=== PATIENT | male | born 1950 | race Caucasian/White ===

== ENCOUNTER 2017-01-27 08:00 | Outpatient (CLI) | payer MEDICARE, OTHER ==
[2012-09-13 10:46] VITALS: BMI 38.0
[2017-01-27] MEDS ORDERED: FLOMAX0.4 MG PO (11:08)
[2017-01-27] MEDS ORDERED: CALAN SR240 MG PO (11:08)
[2017-01-27] MEDS ORDERED: HYZAAR 100-12.51 TAB PO (11:09)
[2017-01-27] MEDS ORDERED: ROBAXIN-750750 MG PO (11:09)
[2017-01-27] MEDS ORDERED: FUROSEMIDE20 MG PO (11:10)
[2017-01-27] MEDS ORDERED: PRAVASTATIN SOD10 MG PO (11:10)
[2017-01-27] MEDS ORDERED: MULTI-DAY VITAM1 TAB PO (11:11)
[2017-01-27] MEDS ORDERED: HYDRALAZINE HCL25 MG PO (11:11)
[2017-01-27] MEDS ORDERED: ARTHROTEC EC 71 EACH PO (11:11)
[2017-01-27 11:59] LABS: HEMATOCRIT 53.6 % (42.0-54.0); HEMOGLOBIN 17.9 g/dL (13.5-17.5); MCH 31.4 pg (26.0-34.0); MCHC 33.4 g/dL (31.0-37.0); RBC 5.7 10x6/uL (4.20-6.10); RDW 13.7 % (11.5-14.5); WBC 9.1 10x3/uL (4.8-10.8)
[2017-01-27 12:08] LABS: ANION GAP 11.1 mmol/L (8-16); CALCIUM 8.7 mg/dL (8.5-10.1); CARBON DIOXIDE 30.7 mmol/L (21.0-32.0); CREATININE - SERUM 1.2 mg/dL (0.6-1.3); POTASSIUM - SERUM 3.8 mmol/L (3.5-5.1)
--- NOTE | 2017-01-27 14:51 | NUR ---
[facility] APPT: EKG REVIEWED BY DR. MEHTA, FAXED TO CARDIOLOGY FOR REVIEW. PER ROSETTA AT CARDIOLOGY, PATIENT NEEDS TO BE SEEN FOR CARDIAC CLEARANCE PRIOR TO SURGERY. LUISITO AT DR. LU'S OFFICE NOTIFIED, STATES SHE WILL NOTIFY PATIENT AND RESCHEDULE PATIENT.
== END 2017-01-27 23:59 | disposition home or self-care (01) ==
LOC: D.PAN 08:00 → EDSTATUS 01-28 07:00 → D.OPS 01-28 07:00 → D.PAN 01-28 07:00 → D.OPS 01-28 08:15
PROVIDERS: Anesthesiology
DX: M75.120 Complete rotator cuff tear or rupture of unspecified shoulder, not specified as traumatic (principal); Z01.810 Encounter for preprocedural cardiovascular examination; Z01.811 Encounter for preprocedural respiratory examination; Z01.812 Encounter for preprocedural laboratory examination; Z53.9 Procedure and treatment not carried out, unspecified reason

== ENCOUNTER 2017-11-30 10:52 | Outpatient (CLI) | payer MEDICARE, OTHER ==
[~2017-11-30] VITALS: Ht 177.8 cm; Wt 122.7 kg
--- NOTE | ~2017-11-30 | HEMODYNAMI ---
PATIENT:VERA PARKS MEDICAL RECORD: [id number] : 46 LOCATION:[facility]CAT ADMISSION DATE: 11/30/17 Generatedon:11/30/201714:09 Patient name: VERA PARKS Patient #: [id number] SSN: : 1950 Date of study: 11/30/2017 Page: Of Hemodynamic Procedure Report Patient Data Patient Demographics Procedure consent was obtained First Name: VERA Gender: Male Last Name: KASEY : 1950 Middle Initial: C Age: 67 year(s) Patient #: [id number] Race: Unknown Additional ID: [id number] Contact details Address: [address] [place] [address] State: [place] City: [place] Zip code: [address] Admission Admission Data Admission Date: 11/30/2017 Admission Time: 10:52 Procedure Procedure Types Cath Procedure Diagnostic Procedure Cardioversion Miscellaneous Procedures Moderate Sedation up to 15 minutes Procedure Description Procedure Date Procedure Date: 11/30/2017 Procedure Start Time: 13:54 Procedure End Time: 14:00 Procedure Staff Name Function Issac Hilario MD Performing Physician Zoë Garcia RT Monitor Veronique Ann RT Scrub Pradeep Palm RN Nurse Silver Sexton [facility] Additional personnel Procedure Data Cath Procedure Fluoroscopy Diagnostic fluoroscopy Total fluoroscopy Time: 0 time: 0 min min Diagnostic fluoroscopy Total fluoroscopy dose: 0 dose: 0 mGy mGy Contrast Material Contrast Material Type Amount (ml) Isovue 300 0 Estimated blood loss: 0 ml Procedure Complications No complications Procedure Medications Medication Administration Route Dosage 0.9% NaCl I.V. 100 ml/hr Oxygen NC 2 l/min Refer to Anesthesia Notes for Sedation Medications Hemodynamics Rest Heart Rate: 0 (bpm) Snapshots Pre Cath Intra NCS Post Cath Vital Signs Time Heart Resp SPO2 etCO2 NIBP (mmHg) Rhythm Pain Sedation Rate (ipm) (%) (mmHg) Status Level (bpm) 13:39:04 44 16 93 0 161/80(129) A-Fib 0 (11) 10(A) , No pain 13:43:53 40 34 96 43.1 170/81(123) A-Fib 0 (11) 10(A) , No pain 13:48:36 49 12 96 37.8 148/83(126) A-Fib 0 (11) 10(A) , No pain 13:53:20 47 17 93 31.7 147/84(106) A-Fib 0 (11) 10(A) , No pain 13:57:59 44 14 79 0 106/80(97) SB 0 (11) 9(A) , No pain 14:08:22 37 10 97 0 108/62(82) A-Fib 0 (11) 9(A) , No pain Medications Time Medication Route Dose Verified Delivered Reason Notes Effectiven ess by by 13:41:22 0.9% NaCl I.V. 100 Pradeep Pradeep Per ml/hr Arpita Palm physician RN RN 13:41:32 Oxygen NC 2 Pradeep Pradeep Per l/min Arpita Palm physician RN RN 13:54:49 Refer to Pradeep Fernández for Anesthesia Arpita Palm sedation Notes for RN RN Sedation Medications Procedure Log Time Note 13:26:51 Informed consent obtained and on chart 13:27:22 Veronique Ann RT(R) sent for patient. Start room use. 13:27:23 Time tracking: Regular hours 13:27:29 Plan of Care:Hemodynamics will remain stable., Cardiac rhythm will remain stable., Comfort level will be maintained., Respiratory function will remain adequate., Patient/ family verbilizes understanding of procedure., Procedure tolerated without complication., Recovers from procedure without complications.. 13:31:51 Patient received from Pre/Post Procedure Room to CCL 1 Alert and oriented. Tansferred to table in Supine position. 13:31:56 Warm blankets applied, and cyn hugger turned on for patient comfort. 13:31:57 Correct patient and procedure confirmed by team. 13:31:59 ECG and BP/O2 sat monitors applied to patient. 13:38:02 Baseline sample Acquired. 13:38:02 Vital chart was started 13:38:09 Rhythm: atrial fibrillation 13:38:12 Full Disclosure recording started 13:38:41 H&P Date Dictated: 11/23/2017 Within 30 days and on chart., H&P Addendum completed by physician on day of procedure. (MUST COMPLETE FOR ALL OUTPATIENTS). 13:38:43 Pre-procedure instructions explained to patient. 13:38:44 Pre-op teaching completed and patient verbalized understanding. 13:38:45 Family in waiting room. 13:38:46 Patient NPO since Midnight. 13:38:50 Is the patient allergic to Iodine/contrast media? No. 13:38:51 Was the patient premedicated? No 13:38:52 Is patient on blood thinner?Yes 13:38:56 ACC The patient was administered the following blood thiners within the last 24 hours: Xarelto 13:38:58 Patient diabetic? No. 13:39:01 Previous problem with sedation/anesthesia? No ? 13:39:03 Snore? Yes 13:39:05 Sleep apnea? No 13:39:06 Deviated septum? No 13:39:06 Opens mouth fully? Yes 13:39:07 Sticks out tongue? Yes 13:39:10 Airway obstruction? No ? 13:39:15 Dentures? Yes out 13:39:19 Pre procedure: right dorsailis pedis pulse 1+ Palpable, but thready & weak; easily obliterated 13:39:21 Pre procedure: left dorsailis pedis pulse 1+ Palpable, but thready & weak; easily obliterated 13:39:23 Patient pain scale 0/10 ?. 13:39:28 IV patent on arrival in left forearm with 0.9% NaCl at [facility]. 13:39:32 Lab results completed and on chart. 13:39:40 Alarms reviewed by R. N. 13:39:40 Sharps counted by scrub and verified by R.N. 13:40:16 Baseline sample Acquired. 13:41:22 0.9% NaCl 100 ml/hr I.V. was administered by Pradeep Palm RN; Per physician; 13:41:32 Oxygen 2 l/min NC was administered by Pradeep Palm RN; Per physician; 13:50:45 Silver Sexton Jr WHEEL PRESS CLERK present and monitoring patient for TIVA. 13:51:34 Physician arrived 13:51:35 --------ALL STOP TIME OUT------ 13:51:35 Final Timeout: patient, procedure, and site verified with staff and physician. All members of the team are in agreement. 13:51:39 Mid Chest site verified by team. 13:51:43 Physical assessment completed. ASA score P 2 - A patient with mild systemic disease as per Issac Hilario MD. 13:51:48 Sedation plan: TIVA Medication:Propofol 13:54:30 Procedure started. 13:54:49 Refer to Anesthesia Notes for Sedation Medications was administered by Pradeep Palm RN; for sedation; 13:55:08 Quick combo pads placed on patients chest and back. 13:56:39 Defibrillator synced and charged to 200 Joules. 13:56:41 Shock delivered. 13:59:16 Unsuccessful cardioversion. 13:59:41 Procedure ended.(Physican Out) 14:00:05 Fluoroscopy time 00.00 minutes. 14:00:07 Flurop Dose total: 0 14:00:07 Fluoroscopy dose: 0 mGy 14:00:11 Contrast amount:Isovue 300 0ml. 14:00:12 Sharps counted by scrub and verified by R.N. 14:00:19 Post procedure rhythm: unchanged. 14:00:22 Estimated blood loss: 0 ml 14:00:24 Post procedure instruction explained to patient.Patient verbalizes understanding. 14:00:24 Patient needs reinforcement of post procedure teaching. 14:00:41 Procedure type changed to Cath procedure, Diagnostic procedure, Cardioversion, Miscellaneous Procedures, Moderate Sedation up to 15 minutes 14:00:43 Procedure and supply charges have been captured, reviewed, submitted and are correct. 14:00:49 Procedure Complication : No complications 14:00:51 Vital chart was stopped 14:00:52 See physician's report for complete and final results. 14:00:54 Report given to Pre/Post Procedure Room. 14:00:56 Patient transfered to Pre/Post Procedure Room with Stretcher. 14:00:59 Procedure ended. 14:00:59 Full Disclosure recording stopped 14:01:01 End room use (Document Last) Signature Audit [place] Stage Time Signature Unsigned Intra-Procedure 11/30/2017 Veronique Ann 2:09:42 PM RT(R) Signatures Monitor : Zoë Garcia Signature : RT Date : Time : [facility] [address] [place] [address]
[~2017-11-30 10:52] MED LIST: ARTHROTEC EC 71 EACH PO; CALAN SR240 MG PO; FLOMAX0.4 MG PO; FUROSEMIDE20 MG PO; HYDRALAZINE HCL25 MG PO; HYZAAR 100-12.51 TAB PO; MULTI-DAY VITAM1 TAB PO; PRAVACHOL20 MG PO; ROBAXIN-750750 MG PO
[2017-11-30] MEDS ORDERED: XARELTO15 MG PO (11:26)
[2017-11-30] MEDS ORDERED: AXIRON30 MG/1.5 TP (11:26)
[2017-11-30] MEDS ORDERED: BETAPACE 80 MG80 MG PO (11:28)
[2017-11-30 11:39] VITALS: BP 124/56; Ht 177.8 cm; Wt 122.7 kg
[2017-11-30 11:57] LABS: ANION GAP 11.7 mmol/L (8-16); CALCIUM 8.1 mg/dL (8.5-10.1); CARBON DIOXIDE 28.5 mmol/L (21.0-32.0); CREATININE - SERUM 1.4 mg/dL (0.6-1.3); POTASSIUM - SERUM 4.2 mmol/L (3.5-5.1)
[2017-11-30 12:03] LABS: BASOPHILS 0.2 % (0-2); EOSINOPHILS 2.9 % (0-7); HEMATOCRIT 53.2 % (42.0-54.0); IMMATURE GRANULOCYTES 0.2 % (0-5); LYMPHOCYTES 17.5 % (15-50); MCH 30.8 pg (26.0-34.0); MCHC 33.8 g/dL (31.0-37.0); MCV 91.1 fL (80.0-100.0); MEAN PLATELET VOLUME 11.4 fL (7.4-10.4); MONOCYTES 7.9 % (2-11); NEUTROPHILS 71.3 % (40-80); PLATELET COUNT 214 10x3/uL (130-400); RBC 5.84 10x6/uL (4.20-6.10); RDW 13.8 % (11.5-14.5); WBC 8.7 10x3/uL (4.8-10.8)
[2017-11-30 12:21] LABS: INR 1.46 (0.85-1.17); PROTIME 17.2 SECONDS (11.6-15.0)
== END 2017-11-30 16:00 | disposition home or self-care (01) ==
LOC: D.CATH 10:52
PROVIDERS: Internal Medicine Cardiovascular Disease
DX: I48.91 Unspecified atrial fibrillation (principal); Z01.812 Encounter for preprocedural laboratory examination

== ENCOUNTER 2017-12-01 10:59 | Outpatient (CLI) | payer MEDICARE, OTHER ==
[~2017-12-01] VITALS: Ht 177.8 cm; Wt 122.7 kg
--- NOTE | ~2017-12-01 | HEMODYNAMI ---
PATIENT:VERA PARKS MEDICAL RECORD: [id number] : 46 LOCATION:DS[facility]CAT ADMISSION DATE: 12/01/17 Generatedon:12/01/201714:21 Patient name: VERA PARKS Patient #: [id number] SSN: : Date of study: 12/01/2017 Page: Of Hemodynamic Procedure Report Patient Data Patient Demographics Procedure consent was obtained First Name: VERA Gender: Male Last Name: KASEY : 1950 Middle Initial: C Age: 67 year(s) Patient #: [id number] Race: Unknown Additional ID: [id number] Contact details Address: [address] [place] [address] State: [place] City: [place] Zip code: [address] Admission Admission Data Admission Date: 12/01/2017 Admission Time: 10:59 Procedure Procedure Types Cath Procedure Diagnostic Procedure PPM/ICD PPM Dual Implant Procedure Description Procedure Date Procedure Date: 12/01/2017 Procedure Start Time: 13:49 Procedure End Time: 14:20 Procedure Staff Name Function Jose Juan Kenney MD Performing Physician Ruben Oliver MD Assisting physician Rodney Parks RT Monitor Monica Gandhi RT Scrub Freedom See RN Nurse Procedure Data Cath Procedure Fluoroscopy Diagnostic fluoroscopy Total fluoroscopy Time: 1.3 time: 1.3 min min Diagnostic fluoroscopy Total fluoroscopy dose: dose: 71.63 mGy 71.63 mGy Estimated blood loss: 10 ml Procedure Medications Medication Administration Route Dosage Ancef (1Gm/50ml NS) I.V.P.B 1 g Ancef Irrigation Topical 1 g (1gm/500ml NS) 0.9% NaCl I.V. 100 ml/hr Oxygen NC 2 l/min Fentanyl I.V. 50 mcg Versed I.V. 1 mg Fentanyl I.V. 50 mcg Versed I.V. 1 mg Hemodynamics Rest Heart Rate: 45 (bpm) Snapshots Pre Cath Intra NCS Post Cath Vital Signs Time Heart Resp SPO2 etCO2 NIBP (mmHg) Rhythm Pain Sedation Rate (ipm) (%) (mmHg) Status Level (bpm) 13:20:04 45 16 93 0 167/100(154) NSR 0 (11) 10(A) , No pain 13:30:56 44 17 89 0 180/96(145) NSR 0 (11) 10(A) , No pain 13:35:32 44 16 93 0 187/89(140) NSR 0 (11) 10(A) , No pain 13:40:11 44 17 92 0 168/93(128) NSR 0 (11) 10(A) , No pain 13:44:41 44 16 96 0 171/95(129) NSR 0 (11) 10(A) , No pain 13:50:40 62 16 94 0 173/90(147) NSR 0 (11) 10(A) , No pain 13:55:04 43 16 94 0 140/93(118) NSR 0 (11) 10(A) , No pain 13:59:24 42 18 95 0 150/88(130) NSR 0 (11) 10(A) , No pain 14:03:40 40 15 98 0 138/82(127) NSR 0 (11) 10(A) , No pain 14:07:58 60 16 99 0 146/99(117) NSR 0 (11) 10(A) , No pain 14:13:22 59 16 98 0 166/106(129) NSR 0 (11) 10(A) , No pain 14:17:50 89 14 99 0 143/99(137) NSR 0 (11) 10(A) , No pain Medications Time Medication Route Dose Verified Delivered Reason Notes Effective ness by by 13:34:02 Ancef I.V.P.B 1 g Jose Juan Loja Per (1Gm/50ml [facility] Y[facility] See RN physician NS) 13:34:13 Ancef Topical 1 g Jose Juan Loja used for Irrigation [facility] Yung See RN procedure (1gm/500ml NS) 13:34:36 0.9% NaCl I.V. 100 Jose Juan Loja Per ml/hr [facility] RN physician 13:45:28 Oxygen NC 2 Jose Juan Loja Per l/min [facility] RN physician 13:45:34 Fentanyl I.V. 50 Jose Juan campbell [facility] [place] [facility] Yung See RN sedation 13:45:42 Versed I.V. 1 mg Jose Juan Singh RN sedation 13:51:17 Fentanyl I.V. 50 Jose Juan Loja for [facility] [place] [facility] Y[facility] See RN sedation 13:51:20 Versed I.V. 1 mg Jose Juan Singh RN sedation Procedure Log Time Note 13:03:36 Informed consent obtained and on chart 13:03:39 Diagnostic Cath Status : Elective 13:05:17 Freedom See RN sent for patient. Start room use. 13:05:19 Time tracking: Regular hours 13:16:19 Plan of Care:Hemodynamics will remain stable., Cardiac rhythm will remain stable., Comfort level will be maintained., Respiratory function will remain adequate., Patient/ family verbilizes understanding of procedure., Procedure tolerated without complication., Recovers from procedure without complications.. 13:18:10 Patient received from Pre/Post Procedure Room to [facility] 3 Alert and oriented. Tansferred to table in Supine position. 13:18:32 Warm blankets applied, and cyn hugger turned on for patient comfort. 13:18:33 Correct patient and procedure confirmed by team. 13:18:34 ECG and BP/O2 sat monitors applied to patient. 13:18:40 Vital chart was started 13:18:43 Baseline sample Acquired. 13:18:52 Rhythm: sinus bradycardia 13:18:55 Full Disclosure recording started 13:19:50 H&P Date Dictated: 11/23/2017 Within 30 days and on chart., H&P Addendum completed by physician on day of procedure. (MUST COMPLETE FOR ALL OUTPATIENTS). 13:19:52 Pre-procedure instructions explained to patient. 13:19:53 Pre-op teaching completed and patient verbalized understanding. 13:20:19 Family in waiting room. 13:20:22 Patient NPO since Breakfast. 13:20:31 Is the patient allergic to Iodine/contrast media? No. 13:20:34 Is patient on blood thinner?Yes 13:21:01 XERELTO LAST DOSE 11/29/2017 13:21:29 Patient diabetic? No. 13:21:32 ----Pre-sedation anethsthesia assessment.---- 13:21:35 Previous problem with sedation/anesthesia? No ? 13:21:37 Snore? Yes 13:21:38 Sleep apnea? No 13:21:40 Deviated septum? No 13:21:41 Opens mouth fully? Yes 13:21:42 Sticks out tongue? Yes 13:21:47 Airway obstruction? Yes ? 13:21:56 Dentures? Yes OUT 13:23:35 Patient pain scale 0/10 ?. 13:24:15 IV patent on arrival in right forearm with 0.9% NaCl at [facility]. 13:24:25 Left chest area was prepped with chlora-prep and draped in sterile fashion 13:24:36 Alarms reviewed by R. N. 13:24:36 Sharps counted by scrub and verified by R.N. 13:30:09 Medtronic Advisa MRI PPM Dual Generator [id number] opened to sterile field. 13:30:10 Medtronic 4574-45 PPM Lead opened to sterile field. 13:30:21 Medtronic 4074-52 PPM Lead opened to sterile field. 13:33:45 PEELAWAY 7FR Safe Sheath (SU7) opened to sterile field. 13:33:46 PEELAWAY 7FR Safe Sheath (SU7) opened to sterile field. 13:34:02 Ancef (1Gm/50ml NS) 1 g I.V.P.B was administered by Freedom See RN; Per physician; 13:34:13 Ancef Irrigation (1gm/500ml NS) 1 g Topical was administered by Freedom See RN; used for procedure; 13:34:36 0.9% NaCl 100 ml/hr I.V. was administered by Freedom See RN; Per physician; 13:35:04 2.0 Ticron Multipack ([id number]) opened to sterile field. 13:35:05 3.0 Vicryl Single Pack [id number] opened to sterile field. 13:35:05 5.0 Monocryl PS2 [id number] opened to sterile field. 13:38:57 Physician paged 13:43:00 Physician arrived 13:43:02 --------ALL STOP TIME OUT------ 13:43:03 Final Timeout: patient, procedure, and site verified with staff and physician. All members of the team are in agreement. 13:43:06 Left chest site verified by team. 13:43:13 Physical assessment completed. ASA score P 2 - A patient with mild systemic disease as per Ruben Oliver MD. 13:43:18 Sedation plan: IV Moderate Sedation Medication:Versed, Fentanyl 13:45:28 Oxygen 2 l/min NC was administered by Freedom See RN; Per physician; 13:45:34 Fentanyl 50 mcg I.V. was administered by Freedom See RN; for sedation; 13:45:42 Versed 1 mg I.V. was administered by Freedom See RN; for sedation; 13:47:59 Procedure started. 13:49:08 Pre sharps counted by scrub and verified by RN: Sutures: 7; Sponges: 5; Stick needles: 2; Skin needles: 2; Blade: 1; Cautery: 1 13:49:15 Grounding pad site Left thigh. 13:49:37 Lidocaine 1% w/epi and Bupivacaine 0.5% was administered to left subclavicular area by Ruben Oliver MD . 13:50:31 Incision made to left subclavicular area. 13:51:17 Fentanyl 50 mcg I.V. was administered by Freedom See RN; for sedation; 13:51:20 Versed 1 mg I.V. was administered by Freedom See RN; for sedation; 13:55:39 --------ALL STOP TIME OUT------ 13:55:51 Left chest site verified by team. 13:56:01 Physical assessment completed. ASA score P 2 - A patient with mild systemic disease as per Jose Juan Kenney MD. 13:56:05 Sedation plan: IV Moderate Sedation Medication:Versed, Fentanyl 13:57:05 Left subclavian vein accessed with 7Fr Peel Away Sheath. 13:57:49 Left subclavian vein accessed with 7Fr Peel Away Sheath. 14:00:18 Ventricular lead inserted and advanced. 14:00:25 Atrial lead inserted and advanced. 14:00:39 Ventricular lead positioned. 14:00:57 Ventricular lead tested. 14:01:27 Atrial lead positioned. 14:01:59 Atrial lead tested. 14:02:26 Atrial lead dislodged. 14:03:05 Atrial lead repositioned. 14:04:10 Atrial lead tested. 14:04:13 Peel-a-way sheath was split and removed. 14:04:17 Peel-a-way sheath was split and removed. 14:04:41 Ventricular lead attachment was completed with 2-0 ticron. 14:07:49 Atrial lead attachment was completed with 2-0 ticron. 14:08:36 PPM Dual was attached to lead(s) and inserted into pocket. 14:08:57 Baseline sample Acquired. 14:11:17 Subcutaneous closure was completed with 3-0 vicryl. 14:14:29 Skin closure was completed with 5-0 monocryl. 14:15:19 Post sharps counted by scrub and verified by RN: Sutures: 7; Sponges: 5; Stick needles: 2; Skin needles: 2; Blade: 1; Cautery: 1 14:15:29 Grounding pad site free from injury. 14:15:38 Procedure ended.(Physican Out) 14:15:49 Fluoroscopy time 01.30 minutes. 14:15:56 Fluoroscopy dose: 71.63 mGy 14:15:56 Flurop Dose total: 71.63 14:16:59 Insertion/operative site no bleeding no hematoma. 14:17:09 Post-op/insertion site Left Subclavian vein dressed using a Mepilex dressing. 14:17:27 Post left subclavian vein:stable 14:17:35 Post-procedure physical assessment completed. ASA score P 2 - A patient with mild systemic disease as per Jose Juan Kenney MD. 14:17:46 Post procedure rhythm: paced 14:17:54 Estimated blood loss: 10 ml 14:17:57 Post procedure instruction explained to patient.Patient verbalizes understanding. 14:17:58 Patient needs reinforcement of post procedure teaching. 14:18:01 Procedure and supply charges have been captured, reviewed, submitted and are correct. 14:19:58 Vital chart was stopped 14:19:58 See physician's report for complete and final results. 14:20:19 Report given to PCU. 14:20:25 Patient transfered to PCU with Bed. 14:20:32 Procedure ended. 14:20:32 Full Disclosure recording stopped 14:20:36 End room use (Document Last) Device Usage Item Name Manufacture Quantity Catalog Hospital Part Current Minimal Lot# / Number Charge Number Stock Stock Serial# Code Medtronic Medtronic 1 [id number] 5 Advisa MRI PPM Dual Generator [id number] Medtronic Medtronic 1 4574-45 224491 558625 5 4574-45 PPM Lead Medtronic Medtronic 1 4074-52 851640 081291 5 4074-52 PPM Lead PEELAWAY 7FR Microtek 2 SU7 911325 [id number] [id number] 10 Safe Sheath [employer] (SU7) 2.0 Ticron Ethicon 6 [id number] 160749 52961 697056 5 Multipack ([id number]) 3.0 Vicryl Ethicon 1 [id number] 862096 241723 167536 5 Single Pack [id number] 5.0 Monocryl Ethicon 1 Y495G 908472 811861 914806 5 PS2 Y495G Signature Audit [place] Stage Time Signature Unsigned Intra-Procedure 12/01/2017 Rodney Parks 2:21:11 PM RT(R) (CV) Signatures Monitor : Rodney Parks RT Signature : Date : Time : [place] [id number] [place] [place] [address]
--- NOTE | ~2017-12-01 | OP ---
PATIENT NAME: VERA PARKS MEDICAL RECORD: [id number] :46 LOCATION:D.M2 D.2118 ADMISSION DATE: SURGEON: BENITA MORROW MD DATE OF OPERATION: 12/01/2017 PROCEDURE: Lead portion of permanent pacemaker placement. INDICATION: Sick sinus syndrome and paroxysmal atrial fibrillation, status post cardioversion, jing escape rhythm. SURGEON: Dr. Oliver. DESCRIPTION OF PROCEDURE: After left subclavian was cannulated via modified Seldinger technique by Dr. Oliver, first under fluoroscopic guidance, I placed the RV lead in the RV apex without difficulty. After adequate R waves and thresholds were obtained, under fluoroscopic guidance, I placed the right atrial lead in right atrial appendage without difficulty. After adequate P waves and thresholds were obtained, I attached the leads to appropriate poles of the generator and the pocket was closed via Dr. Oliver. IMPRESSION: Successful lead portion of permanent pacemaker placement. COMPLICATIONS: None. ESTIMATED BLOOD LOSS: Minimal. DISPOSITION: To the floor, stable. TRANSINT:[id number] Voice Confirmation ID: [id number] DOCUMENT ID: [id number] BENITA MORROW MD at 1512 CC: [id number] DICTATION DATE: 12/01/17 1411 RADIO COMMUNICATIONS MECHANICIAN: 12/01/17 1510 [facility] [address] [place] [address]
[~2017-12-01 10:59] MED LIST changes: +AXIRON30 MG/1.5 TP; +BETAPACE 80 MG80 MG PO; +XARELTO15 MG PO
[2017-12-01 11:51] VITALS: BP 142/71; BMI 38.8
[2017-12-01 12:46] LABS: ANION GAP 10.4 mmol/L (8-16); CALCIUM 8.3 mg/dL (8.5-10.1); CARBON DIOXIDE 29.7 mmol/L (21.0-32.0); CREATININE - SERUM 1.3 mg/dL (0.6-1.3); POTASSIUM - SERUM 4.1 mmol/L (3.5-5.1)
[2017-12-01 12:47] LABS: HEMATOCRIT 51.8 % (42.0-54.0); HEMOGLOBIN 17.1 g/dL (13.5-17.5); MCH 30.4 pg (26.0-34.0); MEAN PLATELET VOLUME 11.7 fL (7.4-10.4); RBC 5.63 10x6/uL (4.20-6.10); RDW 13.9 % (11.5-14.5); WBC 9.4 10x3/uL (4.8-10.8)
[2017-12-01 13:35] LABS: INR 1.12 (0.85-1.17)
[2017-12-01 14:59] VITALS: BP 151/86; Ht 177.8 cm; Wt 122.7 kg
[2017-12-01 20:00] VITALS: BP 152/75
[2017-12-02 04:00] VITALS: BP 150/65
[2017-12-02 07:28] VITALS: BP 183/89
== END 2017-12-02 10:05 | disposition home or self-care (01) ==
LOC: D.CATH 10:59 → D.M2 14:32 → D.CATH 12-02 10:05
PROVIDERS: Internal Medicine Cardiovascular Disease
DX: I49.5 Sick sinus syndrome (principal); Z01.812 Encounter for preprocedural laboratory examination

== ENCOUNTER → 2018-07-28 14:37 | Outpatient (CLI) | payer MEDICARE, OTHER ==
[2017-12-01 14:59] VITALS: BMI 38.8
[2018-07-28 19:24] LABS: BASOPHILS 0.2 % (0-2); HEMATOCRIT 48.2 % (42.0-54.0); HEMOGLOBIN 16.1 g/dL (13.5-17.5); IMMATURE GRANULOCYTES 0.2 % (0-5); LYMPHOCYTES 11.5 % (15-50); MCH 31.8 pg (26.0-34.0); MCHC 33.4 g/dL (31.0-37.0); MCV 95.3 fL (80.0-100.0); MEAN PLATELET VOLUME 11.9 fL (7.4-10.4); MONOCYTES 9.8 % (2-11); NEUTROPHILS 75.3 % (40-80); PLATELET COUNT 214 10x3/uL (130-400); RBC 5.06 10x6/uL (4.20-6.10); RDW 14.8 % (11.5-14.5); WBC 10.2 10x3/uL (4.8-10.8)
[2018-07-28 19:34] LABS: ANION GAP 15.8 mmol/L (8-16); CALCIUM 8.7 mg/dL (8.5-10.1); CREATININE - SERUM 1.2 mg/dL (0.6-1.3); POTASSIUM - SERUM 3.8 mmol/L (3.5-5.1)
== END | disposition home or self-care (01) ==
LOC: D.CT 14:37
PROVIDERS: Family Medicine Adult Medicine
DX: R31.9 Hematuria, unspecified (principal)

== ENCOUNTER → 2018-07-28 21:09 | Outpatient (CLI) | payer MEDICARE, OTHER ==
[2017-12-01 14:59] VITALS: BMI 38.8
== END | disposition home or self-care (01) ==
LOC: D.LABREF 21:09
DX: I10 Essential (primary) hypertension (principal)

== ENCOUNTER → 2018-08-15 06:29 | Outpatient (CLI) | payer MEDICARE, OTHER ==
[2017-12-01 14:59] VITALS: BMI 38.8
== END | disposition home or self-care (01) ==
LOC: D.MRI 06:29
DX: G45.1 Carotid artery syndrome (hemispheric) (principal); I63.412 Cerebral infarction due to embolism of left middle cerebral artery

== ENCOUNTER → 2018-08-16 16:20 | Outpatient (CLI) | payer MEDICARE, OTHER ==
[2017-12-01 14:59] VITALS: BMI 38.8
== END | disposition home or self-care (01) ==
LOC: D.RAD 16:20
DX: N20.0 Calculus of kidney (principal); E21.3 Hyperparathyroidism, unspecified

== ENCOUNTER → 2018-08-18 13:15 | Outpatient (CLI) | payer MEDICARE, OTHER ==
[2017-12-01 14:59] VITALS: BMI 38.8
[2018-08-29 12:17] LABS: CALCULI - CA OXALATE MONOHYDR 55 % (()); CALCULI - COLOR Brown (()); CALCULI - URIC ACID 40 % (()); CALCULI - WEIGHT 536.8 mg (())
== END | disposition home or self-care (01) ==
LOC: D.LABREF 13:15
PROVIDERS: Urology
DX: N20.0 Calculus of kidney (principal)

== ENCOUNTER 2018-10-31 05:50 | Inpatient (IN) | payer MEDICARE, BC ==
[2018-10-30 15:25] LABS: BASOPHILS 0.3 % (0-2); HEMATOCRIT 47.9 % (42.0-54.0); IMMATURE GRANULOCYTES 0.1 % (0-5); LYMPHOCYTES 16.9 % (15-50); MCH 31.7 pg (26.0-34.0); MCHC 33.4 g/dL (31.0-37.0); MEAN PLATELET VOLUME 11.2 fL (7.4-10.4); MONOCYTES 8.6 % (2-11); NEUTROPHILS 71.1 % (40-80); PLATELET COUNT 192 10x3/uL (130-400); RBC 5.04 10x6/uL (4.20-6.10); WBC 8.6 10x3/uL (4.8-10.8)
[2018-10-30 15:35] LABS: INR 1.04 (0.85-1.17); PROTIME 13.1 SECONDS (11.6-15.0)
[2018-10-30 15:36] LABS: ANION GAP 10.8 mmol/L (8-16); CALCIUM 8.9 mg/dL (8.5-10.1); CARBON DIOXIDE 29.8 mmol/L (21.0-32.0); CREATININE - SERUM 1.2 mg/dL (0.6-1.3); POTASSIUM - SERUM 3.6 mmol/L (3.5-5.1)
[~2018-10-31] VITALS: Ht 177.8 cm; Wt 121.4 kg
--- NOTE | ~2018-10-31 | HEMODYNAMI ---
PATIENT:VERA PARKS MEDICAL RECORD: [id number] : 46 LOCATION:[place] ADMISSION DATE: 10/31/18 Generatedon:10/31/20188:39 Patient name: VERA PARKS Patient #: [id number] SSN: : Date of study: 10/31/2018 Page: Of Hemodynamic Procedure Report Patient Data Patient Demographics Procedure consent was obtained First Name: VERA Gender: Male Last Name: KASEY : 1950 Middle Initial: C Age: 68 year(s) Patient #: [id number] Race: Unknown Additional ID: [id number] Contact details [address]: [address] [place] [address] State: [place] City: [place] Zip code: [address] Past Medical History Allergies Allergen Reaction Date Comments Reported Penicillins 10/31/2018 Admission Admission Data Admission Date: 10/31/2018 Admission Time: 5:50 Height (in.): 70 BSA: 2.35 (m2) Height (cm.): 177.8 BMI: 38.02 (kg/m2) Weight (lbs.): 265 Weight (kg.): 120.2 Procedure Procedure Types Cath Procedure Peripheral Cath Diagnostic Procedure Media Developer Peripheral Procedures Nephro Perc Neph Uret Cath Procedure Description Procedure Date Procedure Date: 10/31/2018 Procedure Start Time: 8:10 Procedure Staff Name Function Akbar Valerio MD Performing Physician Lurdes Hackett RT Transmission Systems Operator Kaila Roa RN Nurse Mayank Stephens RT Scrub Procedure Data Cath Procedure Fluoroscopy Diagnostic fluoroscopy Total fluoroscopy Time: 8.3 time: 8.3 min min Diagnostic fluoroscopy Total fluoroscopy dose: 564 dose: 564 mGy mGy Contrast Material Contrast Material Type Amount (ml) Isovue 300 12 Procedure Medications Medication Administration Route Dosage Oxygen etCO2 Nasal cannula 4 l/min Lidocaine 1% added to field 20 Heparin Flush Bag 1 bags (1000units/500ml NS) Versed I.V. 2 mg Fentanyl I.V. 50 mcg unlisted medication I.V. 1 g Fentanyl I.V. 50 mcg Versed I.V. 1 mg Versed I.V. 1 mg Fentanyl I.V. 50 mcg Hemodynamics Rest BSA: 2.35 (m2) O2 Consumption: Estimated: 264.5 (ml/min) O2 Consumption indexed: Estimated:112.55 (ml/min/m) Heart Rate: 62 (bpm) Snapshots Pre Cath Intra NCS Post Cath Vital Signs Time Heart Resp SPO2 etCO2 NIBP (mmHg) Rhythm Pain Status Sedation Rate (ipm) (%) (mmHg) Level (bpm) 7:42:42 75 16 96 41.3 181/89(123) NSR 0 (11) , No 10(A) pain 7:47:41 68 10 94 40.6 Measuring NSR 0 (11) , No 10(A) pain 7:49:04 60 16 96 40.6 Time NSR 0 (11) , No 10(A) Exceeded pain 7:53:49 66 18 96 33.8 119/95(108) NSR 0 (11) , No 10(A) pain 7:58:48 70 21 97 27 Measuring NSR 0 (11) , No 10(A) pain 8:00:10 67 13 97 27.8 Time NSR 0 (11) , No 10(A) Exceeded pain 8:04:12 60 34 97 30.8 Aborted NSR 0 (11) , No 10(A) pain 8:06:15 64 23 96 11.2 170/100(164) NSR 0 (11) , No 9(A) pain 8:10:55 67 13 96 39.8 189/91(130) NSR 0 (11) , No 8(A) pain 8:15:44 66 8 96 46.5 195/108(141) NSR 4 (11) , 8(A) Distressing 8:20:37 64 6 94 54.8 192/95(144) NSR 0 (11) , No 8(A) pain 8:25:16 62 9 92 60.1 181/94(139) NSR 4 (11) , 8(A) Distressing 8:29:50 62 8 94 29.3 116/100(110) NSR 0 (11) , No 8(A) pain 8:34:02 62 24 96 44.3 138/103(118) NSR 0 (11) , No 8(A) pain 8:38:26 60 7 96 43.6 155/99(127) NSR 0 (11) , No 8(A) pain Medications Time Medication Route Dose Verified Delivered Reason Notes Effe ctiveness by by 8:05:17 Oxygen etCO2 4l/min Akbar Bright for Nasal Teodoro Roa RN sedation cannula 8:05:44 Lidocaine 1% added 20ml Akbar Webber used for to vial Teodoro Valerio procedure field MD BEDOLLA 8:08:13 Heparin Flush 1 bags Akbar Webber used for Bag Teodoro Valerio procedure (1000units/500ml MD BEDOLLA NS) 8:08:25 Versed I.V. 2 mg Akbar Bright for Most ly Teodoro Roa RN sedation sleeping @ 8:19:51 8:08:35 Fentanyl I.V. 50 mcg Akbar Bright for Most ly Teodoro Roa RN sedation sleeping @ 8:19:55 8:09:19 cefepime I.V. 1 g Akbar Bright used for Teodoro Roa RN procedure 8:17:23 Fentanyl I.V. 50 mcg Akbar Bright for Most ly Teodoro Roa RN sedation sleeping @ 8:25:31 8:19:45 Versed I.V. 1 mg Akbar Bright for Most ly Teodoro Roa RN sedation sleeping @ 8:25:34 8:25:18 Versed I.V. 1 mg Akbar Bright for Teodoro Roa RN sedation 8:25:25 Fentanyl I.V. 50 mcg Akbar Bright for Teodoro Roa RN sedation Procedure Log Time Note 7:28:58 Patient Height : 70 inches 7:29:02 Patient Weight : 265 lbs 7:30:23 Use device set IR Diagnostic 7:31:27 Time tracking: Regular hours (M-F 7:00 - 5:00) 7:31:51 Plan of Care:Hemodynamics will remain stable., Cardiac rhythm will remain stable., Comfort level will be maintained., Respiratory function will remain adequate., Patient/ family verbilizes understanding of procedure., Procedure tolerated without complication., Recovers from procedure without complications.. 7:31:58 Patient received from Outpatients to IR Alert and oriented. Tansferred to table in Prone position. 7:32:03 Signed procedure consent form obtained from patient. 7:32:14 H&P Date Dictated: 10/31/2018 Within 30 days and on chart.. 7:32:32 Pre-procedure instructions explained to patient. 7:32:33 Pre-op teaching completed and patient verbalized understanding. 7:32:36 Family in waiting room. 7:32:47 Patient allergic to Penicillins 7:32:50 Is the patient allergic to Iodine/contrast media? No. 7:32:54 Is patient on blood thinner?Yes 7:33:01 ACC The patient was administered the following blood thiners: Xarelto, last dose 10/27/2018 7:33:47 Patient diabetic? No. 7:33:50 7:33:52 ----Pre-sedation anethsthesia assessment.---- 7:33:58 Previous problem with sedation/anesthesia? No ? 7:34:01 Snore? Yes 7:34:03 Sleep apnea? Yes 7:34:06 Deviated septum? No 7:34:08 Opens mouth fully? Yes 7:34:10 Sticks out tongue? Yes 7:34:13 Airway obstruction? No ? 7:34:25 Dentures? No out 7:35:32 IV patent on arrival in right antecubital with D5/.45%NaCl at O. 7:35:45 Left renal area was prepped with chlora-prep and draped in sterile fashion 7:36:20 7:36:31 Tegaderm 4 x 4 (1626W) opened to sterile field. 7:36:32 Sterile Angiographic Pack opened to sterile field. 7:36:33 Bag Decanter (2002S) opened to sterile field. 7:36:34 ACIST Manifold (99070) opened to sterile field. 7:36:35 ACIST Hand Control (15959) opened to sterile field. 7:36:36 ACIST Syringe (47834) opened to sterile field. 7:36:37 KIT, INTRODUCER ACCUSTICK II W/C ([id number]) opened to sterile field. 7:36:38 GLIDE CATHETER 5FR ANGLED 65cm (CG507) opened to sterile field. 7:36:45 7:41:14 Vital chart was started 7:42:32 ECG and BP/O2 sat monitors applied to patient. 7:42:34 Baseline sample Acquired. 7:42:40 Baseline sample Acquired. 7:42:44 Full Disclosure recording started 7:42:45 8:05:17 Oxygen 4l/min etCO2 Nasal cannula was administered by Kaila Roa RN; for sedation; 8:05:44 Lidocaine 1% 20ml vial added to field was administered by Akbar Valerio MD; used for procedure; 8:07:58 CHIBA 20 X 15 needle opened to sterile field. 8:08:13 Heparin Flush Bag (1000units/500ml NS) 1 bags was administered by Akbar Valerio MD; used for procedure; 8:08:25 Versed 2 mg I.V. was administered by Kaila Roa RN; for sedation; 8:08:35 Fentanyl 50 mcg I.V. was administered by Kaila Roa RN; for sedation; 8:09:09 GLIDE CATHETER 5FR ANGLED 65cm (CG507) opened to sterile field. 8:09:19 cefepime 1 g I.V. was administered by Kaila Roa RN; used for procedure; 8::19 8::23 Physician arrived 8::24 --------ALL STOP TIME OUT------ 8::25 Final Timeout: patient, procedure, and site verified with staff and physician. All members of the team are in agreement. 8:10:04 Procedure started. 8:10:11 Local anesthetic to left renal area with Lidocaine 1% by Akbar Valerio MD.INITIAL ACCESS ONLY 8:14:02 NITINOL .018 80cm wire ([id number]) opened to sterile field. 8:14:32 GLIDE WIRE ANGLE 180cm (KY6277) opened to sterile field. 8:17:23 Fentanyl 50 mcg I.V. was administered by aKila Roa RN; for sedation; 8:19:45 Versed 1 mg I.V. was administered by Kaila Roa RN; for sedation; 8:19:51 Effectiveness of Versed delivered @ 8:08:25 is: Mostly sleeping 8:19:55 Effectiveness of Fentanyl delivered @ 8:08:35 is: Mostly sleeping 8:25:18 Versed 1 mg I.V. was administered by Kaila Roa RN; for sedation; 8::25 Fentanyl 50 mcg I.V. was administered by Kaila Roa RN; for sedation; 8:25:31 Effectiveness of Fentanyl delivered @ 8:17:23 is: Mostly sleeping 8:25:34 Effectiveness of Versed delivered @ 8:19:45 is: Mostly sleeping 8::19 2 catheters placed in upper and lower poles of kidney 8::23 Procedure ended.(Physican Out) 8:32:29 Fluoroscopy time 08.30 minutes. 8:32:50 Fluoroscopy dose: 564 mGy 8:32:50 Flurop Dose total: 564 8:32:56 Contrast amount:Isovue 300 12ml. 8:34:49 Tegaderm 6 x 8 (1628) opened to sterile field. 8:34:50 Tegaderm 4 x 4 (1626W) opened to sterile field. 8:34:54 Procedure and supply charges have been captured, reviewed, submitted and are correct. 8:37:56 Report given to Outpatients. 8:39:12 Patient transfered to Outpatients with Stretcher. 8:39:35 Vital chart was stopped Device Usage Item Name Manufacture Quantity Catalog Hospital Part Current Minimal Lot# / Number Charge Number Stock Stock Serial# Code Tegaderm 4 x 3M 2 1626W [id number] [id number] 5 4 (1626W) Sterile Cardinal 1 [id number] 508285 647148 5 Angiographic Health Pack Bag Decanter Microtek 1 2001S 555214 01371 012037 5 (2001S) Medical Inc. ACIST Acist 1 34502 110797 091371 200828 5 Manifold Medical (54295) Systems Inc ACIST Hand Acist 1 63385 665214 713031 903712 5 Control Medical (39831) Systems Inc ACIST Acist 1 24548 633555 772363 001237 20 Syringe Medical (66859) Systems Inc KIT, [place] 1 [id number] 727911 179782 753945 5 [id number] INTRODUCER Scientific ACCUSTICK II W/C ([id number]) GLIDE Terumo 2 CG507 533838 757949 5 CATHETER 5FR ANGLED 65cm (CG507) CHIBA 20 X Cook Medical 1 H07887 562805 880182 5 [id number] 15 needle NITINOL .018 Medtronic 1 [id number] 840606 126085 5 80cm wire (B883193) GLIDE WIRE Terumo 1 EP7361 256736 818763 888015 5 ANGLE 180cm (PN7137) Tegaderm 6 x 3M 1 1628 724988 043664 5 8 (1628) Signature Audit [place] Stage Time Signature Unsigned Intra-Procedure 10/31/2018 Lurdes Hackett 8:39:31 AM RT(R) [facility] [address] [place] [address]
[~2018-10-31 05:50] MED LIST changes: +ACETAMINOPHEN500 M1 PO; +BETAPACE 120 M120 MG PO; -BETAPACE 80 MG80 MG PO; -HYDRALAZINE HCL25 MG PO; +HYDRALAZINE HCL50 MG PO; +LASIX20 MG PO; +NORMODYNE / TR300 MG PO; -PRAVACHOL20 MG PO; +PRAVASTATIN SOD10 MG PO; +ULTRAM50 MG PO; -XARELTO15 MG PO; +XARELTO20 MG PO
[2018-10-31 06:44] VITALS: BMI 38.2
--- NOTE | 2018-10-31 07:29 | NUR ---
0725 ELGIN SORIANO HELD SINCE PATIENT IS UROLOGY/DR. VENTURA PER VERBAL ORDER RECEIVED FROM DR. IVY. Shelby JOHN R.N.
--- NOTE | 2018-10-31 11:23 | NUR ---
0925 VOIDED 50ML BROWN COLORED URINE/URINAL. NO CLOTS NOTED. Candido MUÑOZ R.N.
[2018-10-31 16:53] VITALS: BP 183/83
[2018-10-31 19:14] VITALS: Ht 177.8 cm; Wt 121.4 kg
--- NOTE | 2018-10-31 19:32 | NUR ---
PT RESTING IN BED EYES OPEN. NO C/O PAIN. NO S/S OF ACUTE DISTRESS NOTED. PT DENIES ANYTHING FURTHER AT THIS TIME. CALL LIGHT IN REACH. WILL CONTINUE TO MONITOR.
[2018-10-31 20:00] VITALS: BP 85/43
--- NOTE | 2018-10-31 20:00 | NUR ---
RESTING QUIETLY WITH EYES CLOSED. RESP EVEN AND UNALBORED. NO DISTRESS NOTED. IV INFUSING TO RFA WITHOUT REDNESS OR EDEMA NOTED.PATIENT HAS 2 NEPHROSTOMY DRAINS TO LEFT FLANK TO DRAINAGE BAG WITH BLOODY DRAINAGE NOTED.NO COMPLAINTS VOICED AT THIS TIME. CL IN REACH. AT BEDSIDE.
[2018-11-01] VITALS: BP 125/55
[2018-11-01 04:00] VITALS: BP 129/48
--- NOTE | 2018-11-01 08:16 | OP ---
PATIENT NAME: VERA PARKS MEDICAL RECORD: [id number] :46 LOCATION:D.MS [id number] ADMISSION DATE:10/31/18 SURGEON: HEMAL VENTURA MD DATE OF OPERATION: 10/31/2018 SURGEON: Hemal Ventura MD ANESTHESIA: General anesthesia by Curtis Tello CRNA PREOPERATIVE DIAGNOSIS: Left renal staghorn calculi, largest is 24 mm in length. PROCEDURES: Cystoscopy and left percutaneous nephrolithotomy. 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 Radiodense stones in each renal juliet as well as in the renal pelvis. BLOOD LOSS: Difficult to estimate. CLINICAL HISTORY: This is a 68-year-old male who was initially referred with hematuria. He was on Xarelto for cardiac reasons. We obtained cardiac clearance to hold his Xarelto for surgery. CT scan showed a right renal mass. This was treated with cryoablation. He was also found to have renal stones bilaterally. These were analyzed and they are 40% uric acid as well as 55% calcium oxalate and 5% calcium phosphate. He comes today to have the left renal stones removed by left percutaneous nephrolithotomy. Earlier today, Dr. Valerio performed an access into the upper and lower poles of the kidney. It is apparent that virtually every juliet is filled with stones. Therefore, we may have to do another procedure in order to fully clean out all of the calices. Nevertheless, the upper and lower pole accesses would allow me to clean out the area around the poles. HE IS ALLERGIC TO PENICILLIN. He was given Levaquin on-call to the OR. DESCRIPTION OF PROCEDURE: Earlier this morning, Dr. Valerio provided nephroureteral access into the upper and lower poles of the left kidney. The patient was now given induction of general anesthesia in supine position. He was then placed in the frog-leg position on his stretcher. We prepped and draped him. Cystoscopy was performed. He has a normal penile urethra. Prostatic urethra was vascular. There was lateral lobe hyperplasia of the prostate. No significant median lobe was identified. He has single ureteral orifices on each side. The nephroureteral catheter distal ends were seen within the bladder. They were pulled out by grasping forceps into the penile urethra. We then inserted a Tavarez catheter into the bladder and put that to bag drainage. The patient was then turned into the prone position on the Salvador frame. He was then prepped and draped. Through each nephroureteral catheter, we placed an Amplatz Super Stiff wire. The wire from the upper pole access did come out of the urethra. The circulating nurse placed a hemostat on the wire to prevent its backward migration and loss of the access. The lower pole Super Stiff wire went into the bladder instead. Both of the nephroureteral access tubes were removed, leaving the guidewires in place. A 1-cm incision was then made on either side of each wire. The dual lumen catheter was used to pass safety wires of a Sensor wire through the second lumen down the ureter and into the bladder. The safety wires were clamped to the drapes. We then worked over the Super Stiff wire. The NephroMax balloon dilator was used to first dilate the upper pole tract. It was very difficult to court of appeals judge the depths of the patient's renal pelvis. Once the OPERATIVE REPORT [id number] VERA PARKS balloon was placed in an apparently suitable depth, the balloon was inflated to 16 atmospheres of pressure and the sheath was placed down over the balloon. We then performed nephroscopy and I found that I was actually in the extrarenal area. After multiple attempts to dilate a tract into the kidney were unsuccessful, I decided to focus on the lower pole access. Similarly, the balloon was dilated in the lower pole and the sheath was placed down. I then put the balloon deeper and again dilated the tract and placed the sheath even farther down. An extra long sheath was used in the lower pole access. Finally, we were able to enter into the kidney. Four wires could be seen going into the ureteropelvic junction. The [place] LithoClast ultrasonic modality was used to remove some small stones which were seen. The main benefit of the lower pole accesses at the location of the UP junction was outlined by the lower pole access sheath. I then turned my attention back to the upper pole sheath. The balloon was again placed into the tract and the upper pole sheath was pushed in deeper. The balloon was then deflated and removed. Now, coming into the upper pole sheath, I could see the kidney stones within the renal pelvis. The large stone was too large to bring out with grasping forceps. I placed in the [place] LithoClast ultrasonic device and broke it up into smaller fragments. The Peer.im Perc NCircle basket was used to extract the stone fragments. These were sent to pathology for stone analysis. At the end of the procedure, I could not see any further stones. The kidney was suffering from having had dual accesses done and there was a bit of bleeding. This made visualization more difficult. On fluoroscopy, there were still stones in the middle pole which I cannot reach from either access. He will require a second surgery with an access through the middle pole juliet. At this point, the scope was removed. Nephrostomy tubes were placed over each of the Super Stiff wires. All the wires were then removed as well as the stylet of the nephrostomy tubes. The nephrostomy tubes were seen to be within the renal pelvis. These tubes were sutured down to the skin using 2-0 nylon sutures. They were put to bag drainage. The patient will be admitted for postop pain management. TRANSINT:[id number] Voice Confirmation ID: [id number] DOCUMENT ID: [id number] HEMAL VENTURA MD at 0816 CC: [id number] DICTATION DATE: 10/31/18 1548 EQUINE DENTIST: 10/31/18 [address] [facility] [address] [place] [address]
[2018-11-01 09:16] VITALS: BP 129/57
[2018-11-01 10:08] LABS: HEMATOCRIT 33.6 % (42.0-54.0); HEMOGLOBIN 10.8 g/dL (13.5-17.5); MCH 30.9 pg (26.0-34.0); MCHC 32.1 g/dL (31.0-37.0); MEAN PLATELET VOLUME 11.3 fL (7.4-10.4); PLATELET COUNT 205 10x3/uL (130-400); RDW 15.3 % (11.5-14.5); WBC 20.7 10x3/uL (4.8-10.8)
[2018-11-01 10:43] LABS: LYMPHOCYTES 8 % (15-50); MONOCYTES 3 % (2-11); NEUTROPHILS 89 % (40-80); PLATELET ESTIMATE NORMAL; PLATELET MORPHOLOGY NORMAL PLT MORPH
[2018-11-01 12:00] VITALS: BP 128/48
--- NOTE | 2018-11-01 12:50 | NUR ---
PT RESTING IN BED. NO SIGNS OF DISTRESS. IV TO RIGHT FORARM PATENT NO REDNESS OR TENDERNESS. ON 2L NC. HAS GUERRERO NO KINKS HAS CLOTS. HAS TO DRAINS TO LEFT FLANK DRAINING TO GRAVITY BLOODY AND HAS CLOTS. COMPLAINS OF LOWER ABDOMEN PAIN. MEDS GIVEN. DENIES ANY OTHER NEED AT THIS TIME. CALL LIGHT IN REACH. BED LOW POSITION. FAMILY AT BEDSIDE.
[2018-11-01 20:35] VITALS: BP 147/67
--- NOTE | 2018-11-01 21:10 | NUR ---
AWAKE,ALERT.UP AT BEDSIDE. RESP EVEN AND UNALBORED. NO DISTRESS NOTED. DRSG TO LEFT FLANK INTACT WITH DRAINAGE NOTED. DRESSING CHANGED PER REQUEST.COMPLAINTS OF PRESSURE TO BACK AREA. NEPHROSTOMY TUBES WITH CLOTS NOTED IN TUBING. FLUSED WITH CLOTS REMOVED..GUERRERO PATENT WITH BLOOD TINGED URINE NOTED. IV TO RIGHT FOREARM WITHOUT REDNESS OR EDEMA NOTED. CL IN REACH. AT BEDSIDE.
[2018-11-02 00:46] VITALS: BP 122/60
[2018-11-02 04:57] VITALS: BP 124/55
--- NOTE | 2018-11-02 05:04 | NUR ---
EYES CLOSED RESPIRATIONS WITH EASE AND UNLABORED. SR UP X2 CALL LIGHT WITHIN REACH.
--- NOTE | 2018-11-02 07:15 | NUR ---
PT RESTING IN BED, EYES OPEN. AT BEDSIDE. PT ALERT AND ORIENTED. PT ASKED ABOUT RESTARTING HOME MEDS. 2 DRAINS POSTERIOR LEFT SIDE. DRESSING CDI. GUERRERO PRESENT, PINK TINGED URINE. ON 2L O2, NC. IV TO RIGHT FOREARM SITE PATENT WITHOUT REDNESS OR SWELLING. NS INFUSING @ 100ML/HR. PT C/O TUBE NOT FLUSHING FROM DRAINAGE TUBES TO POSTERIOR LEFT SIDE. C/O PAIN, GAVE NORCO FOR PAIN. PT REFUSED SCD'S. PT DENIES ANYTHING FURTHER AT THIS TIME. CALL LIGHT IN REACH. WILL CONTINUE TO MONITOR.
[2018-11-02 08:51] VITALS: BP 185/72
--- NOTE | 2018-11-02 12:13 | MORECARE ---
CASE MANAGEMENT DISCHARGE SUMMARY PATIENT: VERA PARKS UNIT: [id number] ADM DATE: 10/31/18 AGE: 68 : 48 SEX: M ROOM/BED: D.2226 AUTHOR: PAMELA MORALES PHYSICIAN: REFERRING PHYSICIAN: HEMAL VENTURA MD DATE OF SERVICE: 11/02/18 Discharge Plan Patient Name: VERA PARKS [facility] [facility] 1950 Planned Disposition: Home Anticipated Discharge Date: 11/02/18 Discharge Date: Expected LOS: 2 Initial Reviewer: [email or web address] Initial Review Date: 11/02/2018 Generated: 11/02/18 1:12 pm DCPIA - Discharge Planning Initial Assessment Updated by [email or web address]: Ping Cavanaugh on 11/02/18 12:13 pm * Is the patient Alert and Oriented? Yes * How many steps to enter\exit or inside your home? 02/07 flight * PCP Mervin Castillo APN at Dr. Davis's office * Pharmacy [facility] on [address] * Preadmission Environment Home with Family * ADLs Independent * Equipment Cane * List name and contact numbers for known caregivers / representatives who currently or will assist patient after discharge: [employer] - hmpa - [phone] * Verbal permission to speak to the caregivers and representatives has been obtained from the patient. Yes Patient Name: VERA PARKS Page 90099 at 1213 All edits/amendments must be made on the electronic document DICTATION DATE: 11/02/181211 CRUST SORTER: TRACY 11/02/181211 RPT#: [id number] DC DATE: STATUS: ADM IN [facility] [address] [place] [address] END OF REPORT
--- NOTE | 2018-11-02 12:26 | MORECARE ---
CASE MANAGEMENT DISCHARGE SUMMARY PATIENT: VERA PARKS UNIT: [id number] ADM DATE: 10/31/18 AGE: 68 : 48 SEX: M ROOM/BED: D.2226 AUTHOR: ANDREW,DOC PHYSICIAN: REFERRING PHYSICIAN: HEMAL VENTURA MD DATE OF SERVICE: 11/02/18 Discharge Plan Patient Name: VERA PARKS Facility: [facility]:[place] : 1950 Planned Disposition: Home Anticipated Discharge Date: 11/02/18 Discharge Date: Expected LOS: 2 Initial Reviewer: [email or web address] Initial Review Date: 11/02/2018 Generated: 11/02/18 1:26 pm Comments DCP- Discharge Planning Updated by [email or web address]: Ping Cavanaugh on 11/02/18 11:[address] Patient Name: VERA PARKS Admission Status: Elective Accout number: [id number] Admission Date: 10-31-2018 : 1950 Admission Diagnosis: Attending: JAYSON VENTURA Current LOS: 2 Anticipated DC Date: 11-02-2018 Planned Disposition: Home Primary Insurance: MEDICARE A & B Discharge Planning Comments: CM met with patient and family to discuss discharge planning/needs. States he lives with his . States their are 11 steps to get upstairs to his bedroom. States he is independent with all ADL's and IADL's. His is here and will drive him home on discharge. States he has a cane, but doesn't use it all the time. Declines need for home health. His states she will take care of him and his bandage. No needs identified. He has turned his IV off since it was beeping. I notified nurse, Kaila. CM will continue to follow and assist with discharge planning/needs. Home Appliances Mechanic: Ping Cavanaugh DCPIA - Discharge Planning Initial Assessment Updated by [email or web address]: Ping Cavanaugh on 11/02/18 12:13 pm * Is the patient Alert and Oriented? Yes * How many steps to enter\exit or inside your home? 02/07 flight * PCP Mervin Castillo APN at Dr. Davis's office * Pharmacy [facility] on [address] * Preadmission Environment Home with Family * ADLs Independent * Equipment Cane * List name and contact numbers for known caregivers / representatives who currently or will assist patient after discharge: Zph - myso - [phone] * Verbal permission to speak to the caregivers and representatives has been obtained from the patient. Yes * Community resources currently utilized None * Additional services required to return to the preadmission environment? No * Can the patient safely return to the preadmission environment? Yes * Has this patient been hospitalized within the prior 30 days at any hospital? No Last DP export: 11/02/18 11:12 a Patient Name: VERA PARKS Page 30396 at 1226 All edits/amendments must be made on the electronic document DICTATION DATE: 11/02/181225 MOBILE NURSE: TRACY 11/02/181225 RPT#: [id number] DC DATE: STATUS: ADM IN [facility] [address] [place] [address] END OF REPORT
[2018-11-02 13:03] VITALS: BP 181/74
--- NOTE | 2018-11-02 13:52 | NUR ---
PT SITTING UP ON SIDE OF BED WITH FAMILY AT BEDSIDE. O2 @ 2L NC IN PLACE. IV TO RIGHT FOREARM INTACT, SITE WITHOUT REDNESS OR EDEMA. DRESSING TO LEFT SIDE C/D/I. DENIES FURTHER NEEDS AT THIS TIME. CL WITHIN REACH. ENCOURAGED TO CALL WITH NEEDS. WILL CONTINUE TO MONITOR.
--- NOTE | 2018-11-02 14:05 | NUR ---
ASSISTED DR. VENTURA WITH REMOVAL OF DRAINS TO POSTERIOR LEFT SIDE OF PT. DISCONTINUED GUERRERO CATHETER. APPLIED DRESSING TO DRAIN SITES. PT DENIES PAIN. NO S/S OF ACUTE DISTRESS NOTED. AT BEDSIDE. CALL LIGHT IN REACH. WILL CONTINUE TO MONITOR.
--- NOTE | 2018-11-02 14:18 | MORECARE ---
CASE MANAGEMENT DISCHARGE SUMMARY PATIENT: VERA PARKS UNIT: [id number] ADM DATE: 10/31/18 AGE: 68 : 48 SEX: M ROOM/BED: D.2226 AUTHOR: ANDREWDOC PHYSICIAN: REFERRING PHYSICIAN: HEMAL VENTURA MD DATE OF SERVICE: 11/02/18 Discharge Plan Patient Name: VERA PARKS Facility: [facility]:[place] : 1950 Planned Disposition: Home Anticipated Discharge Date: 11/02/18 Discharge Date: Expected LOS: 2 Initial Reviewer: [email or web address] Initial Review Date: 11/02/2018 Generated: 11/02/18 3:18 pm Comments DCP- Discharge Planning Updated by [email or web address]: Ping Cavanaugh on 11/02/18 1:[address] Patient Name: VERA PARKS Encounter No: [id number] : 1950 Primary Insurance: MEDICARE A & B Anticipated DC Date: 11-02-2018 Planned Disposition: Home External Planned Provider: : DCP follow-up note: Patient and family in agreement with discharge plan. No changes to plan. Case management will follow and assist as needed. Ping Cavanaugh DCP- Discharge Planning Updated by [email or web address]: Ping Cavanaugh on 11/02/18 11:[address] Patient Name: VERA PARKS Admission Status: Elective Accout number: [id number] Admission Date: 10-31-2018 : 1950 Admission Diagnosis: Attending: JAYSON VENTURA Current LOS: 2 Anticipated DC Date: 11-02-2018 Planned Disposition: Home Primary Insurance: MEDICARE A & B Discharge Planning Comments: CM met with patient and family to discuss discharge planning/needs. States he lives with his . States their are 11 steps to get upstairs to his bedroom. States he is independent with all ADL's and IADL's. His is here and will drive him home on discharge. States he has a cane, but doesn't use it all the time. Declines need for home health. His states she will take care of him and his bandage. No needs identified. He has turned his IV off since it was beeping. I notified nurse, Kaila. CM will continue to follow and assist with discharge planning/needs. Cloth Baler: Ping Cavanaugh DCPIA - Discharge Planning Initial Assessment Updated by [email or web address]: Ping Afshan on 11/02/18 12:13 pm * Is the patient Alert and Oriented? Yes * How many steps to enter\exit or inside your home? 02/07 flight * PCP Mervin Castillo APN at Dr. Davis's office * Pharmacy [facility] on [address] * Preadmission Environment Home with Family * ADLs Independent * Equipment Cane * List name and contact numbers for known caregivers / representatives who currently or will assist patient after discharge: Sjw - ykzy - [phone] * Verbal permission to speak to the caregivers and representatives has been obtained from the patient. Yes * Community resources currently utilized None * Additional services required to return to the preadmission environment? No * Can the patient safely return to the preadmission environment? Yes * Has this patient been hospitalized within the prior 30 days at any hospital? No Last DP export: 11/02/18 11:26 a Patient Name: VERA PARKS Page 95475 at 1418 All edits/amendments must be made on the electronic document DICTATION DATE: 11/02/181417 TAIL RIPPER: TRACY 11/02/181417 RPT#: [id number] DC DATE: STATUS: ADM IN [facility] [address] [place] [address] END OF REPORT
[2018-11-02] MEDS ORDERED: HYDROCODON-ACE1 EAC7 PO (15:08)
--- NOTE | 2018-11-02 15:30 | NUR ---
PT DISCHARGED HOME WITH VIA WHEEL CHAIR. NO C/O PAIN. NO S/S OF ACUTE DISTRESS NOTED. IV DISCONTINUED, CATHETER TIP INTACT. WENT OVER DISCHARGE INSTRUCTIONS WITH PT, PT AND ACKNOWLEDGED. PT DENIES ANYTHING FURTHER.
--- NOTE | 2018-11-03 10:26 | MORECARE ---
CASE MANAGEMENT DISCHARGE SUMMARY PATIENT: VERA PARKS UNIT: [id number] ADM DATE: 10/31/18 AGE: 68 : 48 SEX: M ROOM/BED: D.2226 AUTHOR: PAMELA MORALES PHYSICIAN: REFERRING PHYSICIAN: HEMAL VENTURA MD DATE OF SERVICE: 11/03/18 Discharge Plan Patient Name: VERA PARKS Facility: [facility]:[place] : 1950 Planned Disposition: Home Anticipated Discharge Date: 11/02/18 Discharge Date: 11/02/2018 Expected LOS: 2 Initial Reviewer: [email or web address] Initial Review Date: 11/02/2018 Generated: 11/03/18 11:26 am Comments DCP- Discharge Planning Updated by [email or web address]: Pnig Cavanaugh on 11/02/18 1:[address] Patient Name: VERA PARKS Encounter No: [id number] : 1950 Primary Insurance: MEDICARE A & B Anticipated DC Date: 11-02-2018 Planned Disposition: Home External Planned Provider: : DCP follow-up note: Patient and family in agreement with discharge plan. No changes to plan. Case management will follow and assist as needed. Ping Cavanaugh DCP- Discharge Planning Updated by [email or web address]: Ping Cavanaugh on 11/02/18 11:[address] Patient Name: VERA PARKS Admission Status: Elective Accout number: [id number] Admission Date: 10-31-2018 : 1950 Admission Diagnosis: Attending: JAYSON VENTURA Current LOS: 2 Anticipated DC Date: 11-02-2018 Planned Disposition: Home Primary Insurance: MEDICARE A & B Discharge Planning Comments: CM met with patient and family to discuss discharge planning/needs. States he lives with his . States their are 11 steps to get upstairs to his bedroom. States he is independent with all ADL's and IADL's. His is here and will drive him home on discharge. States he has a cane, but doesn't use it all the time. Declines need for home health. His states she will take care of him and his bandage. No needs identified. He has turned his IV off since it was beeping. I notified nurse, Kaila. CM will continue to follow and assist with discharge planning/needs. Is/It Project Manager: Ping Cavanaugh DCPIA - Discharge Planning Initial Assessment Updated by [email or web address]: Ping Afshan on 11/02/18 12:13 pm * Is the patient Alert and Oriented? Yes * How many steps to enter\exit or inside your home? 02/07 flight * PCP Mervin Castillo APN at Dr. Davis's office * Pharmacy [facility] on [address] * Preadmission Environment Home with Family * ADLs Independent * Equipment Cane * List name and contact numbers for known caregivers / representatives who currently or will assist patient after discharge: Qkd - wshn - [phone] * Verbal permission to speak to the caregivers and representatives has been obtained from the patient. Yes * Community resources currently utilized None * Additional services required to return to the preadmission environment? No * Can the patient safely return to the preadmission environment? Yes * Has this patient been hospitalized within the prior 30 days at any hospital? No Last DP export: 11/02/18 1:18 p Patient Name: VERA PARKS Page 82091 at 1026 All edits/amendments must be made on the electronic document DICTATION DATE: 11/03/18 1026 HAND SIZER: TRACY 11/03/18 1026 RPT#: [id number] DC DATE:11/02/18 STATUS: DIS IN [facility] [address] [place] [address] END OF REPORT
[2018-11-06 14:14] LABS: CALCULI - CA OXALATE MONOHYDR 85 % (()); CALCULI - COLOR Brown (()); CALCULI - COMMENT Note: (()); CALCULI - URIC ACID 10 % (()); CALCULI - WEIGHT 1971.2 mg (())
== END 2018-11-02 16:59 | disposition home or self-care (01) | DRG 661 ==
LOC: D.MS 05:50 → D.OPS 05:50 → D.PAN 08:00 → D.OPS 08:00 → D.PAN 09:00 → D.OPS 09:00 → D.MS 16:28 → D.OPS 16:29 → D.MS 16:29
PROVIDERS: Anesthesiology; Radiology Diagnostic Radiology; ADMIT Urology
PROC: 0TC47ZZ Extirpation of Matter from Left Kidney Pelvis, Via Natural or Artificial Opening (ICD-10-PCS; principal; 2018-10-31 08:10)
PROC: 0T143JD Bypass Left Kidney Pelvis to Cutaneous with Synthetic Substitute, Percutaneous Approach (ICD-10-PCS; 2018-10-31 10:00)
DX: N20.0 Calculus of kidney (principal); R42 Dizziness and giddiness

== ENCOUNTER → 2018-11-06 12:33 | Outpatient (CLI) | payer MEDICARE, BC ==
[2018-10-31 19:14] VITALS: BMI 38.3
[~2018-11-06 12:33] MED LIST changes: +HYDROCODON-ACE1 EAC7 PO
[2018-11-06 12:59] LABS: BASOPHILS 0.2 % (0-2); EOSINOPHILS 2.9 % (0-7); HEMATOCRIT 26.8 % (42.0-54.0); HEMOGLOBIN 8.6 g/dL (13.5-17.5); IMMATURE GRANULOCYTES 0.3 % (0-5); LYMPHOCYTES 8.6 % (15-50); MCHC 32.1 g/dL (31.0-37.0); MCV 96.8 fL (80.0-100.0); MEAN PLATELET VOLUME 10.3 fL (7.4-10.4); MONOCYTES 12.5 % (2-11); NEUTROPHILS 75.5 % (40-80); RBC 2.77 10x6/uL (4.20-6.10); RDW 14.8 % (11.5-14.5); WBC 11.6 10x3/uL (4.8-10.8)
[2018-11-06 13:09] LABS: PLATELET COUNT 249 10x3/uL (130-400)
== END | disposition home or self-care (01) ==
LOC: D.LAB 12:33
PROVIDERS: Urology
DX: L76.22 Postprocedural hemorrhage of skin and subcutaneous tissue following other procedure (principal)

== ENCOUNTER → 2018-11-15 11:00 | Outpatient (CLI) | payer MEDICARE, BC ==
[2018-10-31 19:14] VITALS: BMI 38.3
[2018-11-15 11:43] LABS: BASOPHILS 0.2 % (0-2); EOSINOPHILS 2.5 % (0-7); HEMATOCRIT 28.4 % (42.0-54.0); IMMATURE GRANULOCYTES 0.2 % (0-5); LYMPHOCYTES 9.3 % (15-50); MCH 29.8 pg (26.0-34.0); MCHC 31.7 g/dL (31.0-37.0); MEAN PLATELET VOLUME 9.3 fL (7.4-10.4); MONOCYTES 6.7 % (2-11); NEUTROPHILS 81.1 % (40-80); RBC 3.02 10x6/uL (4.20-6.10); RDW 14.8 % (11.5-14.5); WBC 12.4 10x3/uL (4.8-10.8)
[2018-11-15 11:48] LABS: PLATELET COUNT 427 10x3/uL (130-400)
== END | disposition home or self-care (01) ==
LOC: D.LAB 11:00
PROVIDERS: Urology
DX: D64.9 Anemia, unspecified (principal)

== ENCOUNTER → 2019-01-09 12:25 | Outpatient (CLI) | payer MEDICARE, BC ==
[2018-10-31 19:14] VITALS: BMI 38.3
== END | disposition home or self-care (01) ==
LOC: D.CT 12:25
PROVIDERS: ATTEND Radiology Diagnostic Radiology
DX: N28.89 Other specified disorders of kidney and ureter (principal)

== ENCOUNTER → 2019-01-12 07:48 | Outpatient (CLI) | payer MEDICARE, BC ==
[2018-10-31 19:14] VITALS: BMI 38.3
--- NOTE | ~2019-01-12 | HEMODYNAMI ---
PATIENT:VERA PARKS MEDICAL RECORD: [id number] : 46 LOCATION:[facility] ADMISSION DATE: 01/12/19 Generatedon:01/12/20199:03 Patient name: VERA PARKS Patient #: [id number] SSN: : 1950 Date of study: 01/12/2019 Page: Of Hemodynamic Procedure Report Patient Data Patient Demographics Procedure consent was obtained First Name: VERA Gender: Male Last Name: KASEY : 1950 [facility] Initial: C Age: 68 year(s) Patient #: [id number] Race: Unknown Additional ID: [id number] Contact details [address]: [address] [place] [address] State: [place] City: [place] Zip code: [address] Past Medical History Allergies Allergen Reaction Date Comments Reported Penicillins 10/31/2018 Penicillins 01/12/2019 Admission Admission Data Admission Date: 01/12/2019 Admission Time: 7:48 Procedure Procedure Types Cath Procedure Peripheral Cath Diagnostic Procedure Miscellaneous Aspiration/Injection (Joint) Procedure Description Procedure Date Procedure Date: 01/12/2019 Procedure Start Time: 8:51 Procedure Staff Name Function Akbar Valerio MD Performing Physician Mayank Stephens RT Monitor Farida Anderson RN Nurse Procedure Data Cath Procedure Fluoroscopy Diagnostic fluoroscopy Total fluoroscopy Time: 0.5 time: 0.5 min min Diagnostic fluoroscopy Total fluoroscopy dose: 20 dose: 20 mGy mGy Hemodynamics Rest Pre Cath Intra NCS Post Cath Procedure Log Time Note 8:44:04 Farida Anderson RN sent for patient. Start room use. 8:44:15 Patient received from Outpatients to IR Alert and oriented. Tansferred to table in Supine position. 8:44:17 Correct patient and procedure confirmed by team. 8:44:18 Signed procedure consent form obtained from patient. 8:44:20 Full Disclosure recording started 8:44:21 Pre-procedure instructions explained to patient. 8:44:22 Pre-op teaching completed and patient verbalized understanding. 8:44:54 Patient allergic to Penicillins 8:45:00 Is patient on blood thinner?No 8:45:10 Right Hip was prepped with betadine and draped in sterile fashion. 8:49:02 Physician arrived 8:49:03 --------ALL STOP TIME OUT------ 8:49:05 Right groin site verified by team. 8:49:15 Sedation plan: Local Anesthetic Medication:Lidocaine 8:51:05 Procedure started. 8:51:10 Local anesthetic to right hip with Lidocaine 1% by Akbar Valerio MD.INITIAL ACCESS ONLY 8:51:23 SAFE-T PLUS MYELOGRAM TRAY opened to sterile field. 8:59:41 Procedure ended.(Physican Out) 9:01:02 bandaide applied site stable pt sent home 9:01:54 Fluoroscopy time 00.50 minutes. 9:01:57 Fluoroscopy dose: 20 mGy 9:01:57 Flurop Dose total: 20 Device Usage Item Name Manufacture Quantity Catalog Hospital Part Current Minimal Lot# / Number Charge Number Stock Stock Serial# Code SAFE-T [employer] 1 [id number] PLUS MYELOGRAM TRAY Signature Audit [place] Stage Time Signature Unsigned Intra-Procedure 01/12/2019 Mayank 9:02:55 AM Angelo RT (R) (CV) Signatures Monitor : Mayank Signature : Angelo RT Date : Time : [address] [address]
== END | disposition home or self-care (01) ==
LOC: D.RAD 07:48
PROVIDERS: ATTEND Orthopaedic Surgery
DX: M16.11 Unilateral primary osteoarthritis, right hip (principal)

== ENCOUNTER 2019-02-28 11:15 | Outpatient (CLI) | payer MEDICARE, BC ==
[~2019-02-28] VITALS: Ht 180.3 cm; Wt 120.5 kg
--- NOTE | ~2019-02-28 | HEMODYNAMI ---
PATIENT:VERA PARKS MEDICAL RECORD: [id number] : 46 LOCATION:D.CAT ADMISSION DATE: 02/28/19 Generatedon:02/28/201912:53 Patient name: VERA PARKS Patient #: [id number] SSN: : 1950 Date of study: 02/28/2019 Page: Of Hemodynamic Procedure Report Patient Data Patient Demographics Procedure consent was obtained First Name: VERA Gender: Male Last Name: KASEY : 1950 Middle Initial: C Age: 69 year(s) Patient #: [id number] Race: Unknown Additional ID: [id number] Contact details Address: [address] [place] [address] State: [place] City: [place] Zip code: [address] Past Medical History Allergies Allergen Reaction Date Comments Reported Penicillins 10/31/2018 Penicillins 01/12/2019 Admission Admission Data Admission Date: 02/28/2019 Admission Time: 11:15 Height (in.): 62 BSA: 2.18 (m2) Height (cm.): 157.48 BMI: 49.93 (kg/m2) Weight (lbs.): 273 Weight (kg.): 123.83 Procedure Procedure Types Cath Procedure Diagnostic Procedure Cardioversion External Procedure Description Procedure Date Procedure Date: 02/28/2019 Procedure Start Time: 12:45 Procedure End Time: 12:52 Procedure Staff Name Function Issac Hilario MD Performing Physician Jorge Nunn RT Green Inspector Talib Eastman Additional personnel Jorge Nunn RT Monitor Freedom See RN Nurse Procedure Data Cath Procedure Fluoroscopy Diagnostic fluoroscopy Total fluoroscopy Time: 0 time: 0 min min Diagnostic fluoroscopy Total fluoroscopy dose: 0 dose: 0 mGy mGy Contrast Material Contrast Material Type Amount (ml) Isovue 300 0 Estimated blood loss: 0 ml Procedure Complications No complications Hemodynamics Rest BSA: 2.18 (m2) O2 Consumption: Estimated: 260.89 (ml/min) O2 Consumption indexed : Estimated:119.67 (ml/min/m) Heart Rate: 81 (bpm) Snapshots Pre Cath Intra NCS Post Cath Vital Signs Time Heart Resp SPO2 etCO2 NIBP (mmHg) Rhythm Pain Sedation Rate (ipm) (%) (mmHg) Status Level (bpm) 12:40:04 73 7 97 0 146/102(109) NSR 0 (11) 10(A) , No pain 12:45:03 72 39 100 41.8 Measuring NSR 0 (11) 10(A) , No pain 12:45:15 95 39 99 20.1 190/101(171) NSR 0 (11) 10(A) , No pain 12:49:30 84 13 89 23.1 136/93(118) NSR 0 (11) 10(A) , No pain 12:52:48 82 14 89 0 150/86(120) NSR 0 (11) 10(A) , No pain Procedure Log Time Note 12:15:27 Jorge HELLER(R) sent for patient. Start room use. 12:21:33 Patient Height : 62 inches 12:21:38 Patient Weight : 273 lbs 12:23:22 Diagnostic Cath status Elective 12:23:28 Time tracking: Regular hours (M-F 7:00 - 5:00) 12:23:33 Plan of Care:Hemodynamics will remain stable., Cardiac rhythm will remain stable., Comfort level will be maintained., Respiratory function will remain adequate., Patient/ family verbilizes understanding of procedure., Procedure tolerated without complication., Recovers from procedure without complications.. 12:23:48 Correct patient and procedure confirmed by team. 12:23:50 Signed procedure consent form obtained from patient. 12:35:50 Patient arrived from Pre/Post Procedure Room to [facility] 2. Patient remains on bed/stretcher for procedure. 12:35:51 Warm blankets applied, and cyn hugger turned on for patient comfort. 12:35:52 ECG and BP/O2 sat monitors applied to patient. 12:36:44 Talib Eastman present and monitoring patient for TIVA. 12:38:49 Vital chart was started 12:40:02 Quick Combo opened to sterile field. 12:40:24 Baseline sample Acquired. 12:40:30 Rhythm: sinus rhythm 12:40:31 Full Disclosure recording started 12:42:12 H&P Date Dictated: 02/27/2019 Within 30 days and on chart., H&P Addendum completed by physician on day of procedure. (MUST COMPLETE FOR ALL OUTPATIENTS). 12:42:14 Pre-procedure instructions explained to patient. 12:42:14 Pre-op teaching completed and patient verbalized understanding. 12:42:17 Family in patients room. 12:42:18 Patient NPO since Midnight. 12:42:20 Quick combo pads placed on patients chest and back. 12:42:20 Is the patient allergic to Iodine/contrast media? No. 12:42:21 Is patient on blood thinner?Yes 12:42:23 ACC The patient was administered the following blood thiners within the last 24 hours: Xarelto 12:42:36 Patient diabetic? No. 12:42:40 Previous problem with sedation/anesthesia? No ? 12:42:55 Snore? Yes 12:42:56 Sleep apnea? Yes 12:42:58 Deviated septum? No 12:42:58 Opens mouth fully? Yes 12:42:59 Sticks out tongue? Yes 12:43:01 Airway obstruction? No ? 12:43:15 Dentures? Yes out 12:43:20 Patient pain scale 0/10 ?. 12:43:26 IV patent on arrival in left forearm with 0.9% NaCl at KVO. 12:44:32 Lab results completed and on chart. 12:44:51 --------ALL STOP TIME OUT------ 12:44:51 Final Timeout: patient, procedure, and site verified with staff and physician. All members of the team are in agreement. 12:45:05 Fire Safety Assessment: E--There are other possible contributors. 12:45:08 Physical assessment completed. ASA score P 4 - A patient with severe systemic disease that is a constant threat to life as per Issac Hilario MD. 12:45:12 Sedation plan: TIVA Medication:Propofol 12:45:19 Procedure started. 12:45:33 Defibrillator synced and charged to 200 Joules. 12:45:41 Shock delivered. 12:46:11 Patient cardioverted to sinus rhythm . 12:46:35 Procedure ended.(Physican Out) 12:50:24 Fluoroscopy time 00.00 minutes. 12:50:34 Fluoroscopy dose: 0 mGy 12:50:34 Flurop Dose total: 0 12:50:38 Contrast amount:Isovue 300 0ml. 12:50:55 Post-procedure physical assessment completed. ASA score P 4 - A patient with severe systemic disease that is a constant threat to life as per Issac Hilario MD. 12:51:14 Post procedure rhythm: sinus rhythm 12:51:17 Estimated blood loss: 0 ml 12:51:18 Post procedure instruction explained to patient.Patient verbalizes understanding. 12:51:19 Patient needs reinforcement of post procedure teaching. 12:51:32 Procedure Complication : No complications 12:51:45 Procedure and supply charges have been captured, reviewed, submitted and are correct. 12:51:48 Vital chart was stopped 12:51:49 See physician's report for complete and final results. 12:51:55 Report given to Pre/Post Procedure Room. 12:52:09 Patient transfered to Pre/Post Procedure Room with Stretcher. 12:52:50 Procedure ended. 12:52:50 Full Disclosure recording stopped 12:52:57 End room use (Document Last) Device Usage Item Manufacture Quantity Catalog Hospital Part Current Minimal Lot# / Name Number Charge Number Stock Stock [facility]# Code [facility] WePay 1 [id number] Combo Signature Audit [place] Stage Time Signature Unsigned Intra-Procedure 02/28/2019 Jorge Nunn 12:53:09 PM RT(R) Signatures Monitor : Jorge Nunn RT Signature : Date : Time : [facility] [address] [place] [address]
[2019-02-28] MEDS ORDERED: XARELTO20 MG PO (12:21)
[2019-02-28 12:27] VITALS: BP 121/78; Ht 180.3 cm; Wt 120.5 kg
[2019-02-28 12:41] LABS: BASOPHILS 0.1 % (0-2); EOSINOPHILS 1.9 % (0-7); HEMATOCRIT 39.4 % (42.0-54.0); HEMOGLOBIN 12.1 g/dL (13.5-17.5); IMMATURE GRANULOCYTES 0.2 % (0-5); LYMPHOCYTES 10.8 % (15-50); MCH 25.9 pg (26.0-34.0); MCHC 30.7 g/dL (31.0-37.0); MCV 84.4 fL (80.0-100.0); MONOCYTES 8.8 % (2-11); NEUTROPHILS 78.2 % (40-80); RBC 4.67 10x6/uL (4.20-6.10); RDW 16.1 % (11.5-14.5); WBC 8.8 10x3/uL (4.8-10.8)
[2019-02-28 12:46] LABS: INR 1.94 (0.85-1.17); PROTIME 21.5 SECONDS (11.6-15.0)
[2019-02-28 12:47] LABS: ANION GAP 12.3 mmol/L (8-16); CALCIUM 8.9 mg/dL (8.5-10.1); CARBON DIOXIDE 29.2 mmol/L (21.0-32.0); CREATININE - SERUM 1.3 mg/dL (0.6-1.3); POTASSIUM - SERUM 3.5 mmol/L (3.5-5.1)
[2019-02-28 12:51] LABS: PLATELET COUNT 247 10x3/uL (130-400)
--- NOTE | 2019-02-28 13:03 | NUR ---
PT ARRIVED BY STRETCHER. PLACED ON MONITORS. PT IN SINUS RHYTHM. ATRIAL PACED. OCCASIONAL PACs. PT SET UP WITH SANDWICH TRAY AND DRINK. WILL CONTINUE TO MONITOR.
--- NOTE | 2019-02-28 13:18 | NUR ---
PT SITTING UP IN BED EATING. VSS. NO CHANGE IN RHYTHM. NO OTHER NEEDS AT THIS TIME.
--- NOTE | 2019-02-28 13:46 | NUR ---
PIV D/C'D WITH CATH TIP INTACT. PT TOLERATED WELL. INSTRUCTED TO GET UP AND DRESSED. FAMILY AT BEDSIDE FOR ASSISTANCE.
--- NOTE | 2019-02-28 13:56 | NUR ---
DISCUSSED DISCHARGE INSTRUCTIONS WITH PT AND PT'S FAMILY. THEY VOICED UNDERSTANDING.
--- NOTE | 2019-02-28 14:05 | NUR ---
PT TO RESTROOM TO VOID. TAKEN OUT TO VEHICLE BY WHEELCHAIR. NO S/S OF DISTRESS NOTED.
== END 2019-02-28 14:05 | disposition home or self-care (01) ==
LOC: D.CATH 11:15
PROVIDERS: ATTEND Internal Medicine Cardiovascular Disease
DX: I48.91 Unspecified atrial fibrillation (principal); Z01.812 Encounter for preprocedural laboratory examination

== ENCOUNTER 2019-04-05 10:50 | Inpatient (IN) | payer MEDICARE, BC ==
[~2019-04-05] VITALS: Ht 180.3 cm; Wt 120.5 kg
[2019-04-25 12:00] LABS: APTT 29.3 SECONDS (22.8-39.4); BASOPHILS 0.2 % (0-2); CALCIUM 9.3 mg/dL (8.5-10.1); CARBON DIOXIDE 30.8 mmol/L (21.0-32.0); CREATININE - SERUM 1.2 mg/dL (0.6-1.3); EOSINOPHILS 2.2 % (0-7); HEMATOCRIT 43.4 % (42.0-54.0); HEMOGLOBIN 13.5 g/dL (13.5-17.5); IMMATURE GRANULOCYTES 0.2 % (0-5); INR 1.29 (0.85-1.17); LYMPHOCYTES 12.8 % (15-50); MCH 25.9 pg (26.0-34.0); MCHC 31.1 g/dL (31.0-37.0); MCV 83.1 fL (80.0-100.0); MEAN PLATELET VOLUME 10.5 fL (7.4-10.4); MONOCYTES 7.3 % (2-11); NEUTROPHILS 77.3 % (40-80); PLATELET COUNT 271 10x3/uL (130-400); POTASSIUM - SERUM 3.8 mmol/L (3.5-5.1); PROTIME 15.5 SECONDS (11.6-15.0); RBC 5.22 10x6/uL (4.20-6.10); RDW 17.7 % (11.5-14.5); WBC 8.5 10x3/uL (4.8-10.8)
[2019-04-25 12:14] LABS: APPEARANCE HAZY (CLEAR); BACTERIA FEW /hpf (NONE SEEN); BILIRUBIN NEGATIVE (NEGATIVE); COLOR YELLOW (YELLOW); EPITHELIAL CELLS 0-5 /hpf (0-5); GLUCOSE NEGATIVE (NEGATIVE); KETONE NEGATIVE (NEGATIVE); NITRITE NEGATIVE (NEGATIVE); PROTEIN NEGATIVE (NEGATIVE); RED CELLS - URINE 25-50 /hpf (0-5); UROBILINOGEN NORMAL (NORMAL); WHITE CELLS - URINE OCC /hpf (0-5)
[2019-04-25 12:15] LABS: MUCUS <1+ /lpf (NONE SEEN)
[2019-05-01 05:52] VITALS: BMI 37.0
--- NOTE | 2019-05-01 08:22 | NUR ---
PLASMA BLADE SET TO 6/8 BOVIE PAD LEFT THIGH [id number] EXP 11/02/2020
--- NOTE | 2019-05-01 10:36 | NUR ---
BILAT SCDS APPLIED AND ON ORDERED. BILAT HEELS ARE BRIDGED. PT STILL C/O SEVERE PAIN FROM R.LOWER BACK AND HIP DOWN TO HIS LEG. IF PAIN MEDICATION DOESNT RELIEVE SOON, WILL CALL ANESTHESIA BACK.
[2019-05-01 11:04] VITALS: BP 186/85
--- NOTE | 2019-05-01 11:13 | OP ---
PATIENT NAME: VERA PARKS MEDICAL RECORD: [id number] :46 LOCATION:D.MS [id number] ADMISSION DATE:05/01/19 SURGEON: CHARANJIT MUNIZ DO DATE OF OPERATION: 05/01/2019 PROCEDURE PERFORMED: Right total hip arthroplasty. PREOPERATIVE DIAGNOSIS: Right hip osteoarthritis. POSTOPERATIVE DIAGNOSIS: Right hip osteoarthritis. INDICATIONS: Mr. Parks is a 69-year-old male who has had several years of hip pain. He has tried all manner of nonoperative treatment including physical therapy and injections to no avail. He is tired of dealing with the pain and it is affecting his activities of daily living and wanted something done. I recommended a total hip replacement. Aware of the risks of infection, bleeding, damage to nerves and vessels, tired, numbness, loosening of the implants, need for further surgery, blood clots, and even . He was okay with those risks and signed the consent. SURGEON: Charanjit Muniz DO I was assisted by Terrell Truong, advanced nurse practitioner. DESCRIPTION OF PROCEDURE: The patient received a block in the preoperative area. He was taken to the operative suite and laid in the supine position, sedated and intubated and then moved over to the Mcclelland table and positioned. The right hip was then prepped and draped in sterile fashion. Timeout was performed, everyone was in agreement as to the correct side, site, patient. He received 3 grams Ancef and 80 mg of gentamicin preoperatively for antibiotics. He did not get TXA due to having AFib. After the timeout was performed and the hip was then prepped and draped, an incision began over the tensor fascia temo muscle. Careful dissection was made down to the tensor fascia temo fascia. The fascia was incised. The fascia was taken anteriorly, muscle belly posteriorly. Opened up the rectus interval. Rectus was then opened and taken medially, tensor fascia temo laterally. The ascending branch of the lateral femoral circumflex artery and veins accompanying were encountered and tied and then coagulated with the Aquamantys and then cut. The capsule was then exposed with Hohmann's on either side of the neck. The capsule was then opened and tagged and then the neck cut was made. Once the neck cut was made, femoral head was removed. After it was removed, the labrum was removed from the acetabulum as well as the pulvinar. I then began reaming, reamed up to a 56. A 56 cup was then impacted into place and then the liner was placed in. It was tested to see if it was good and solid. This was done with fluoroscopy as well. The femur was then exposed and a canal finder was used as well as a cookGallery AlSharq cutter and broached to a 10. I got an x-ray, it was in varus, I removed this and used a 4 broach to get more lateral. This was done and went up to a 14. A 14 was put in and seemed to be a little long on x-ray, so the neck was recut closer to the lesser trochanter and this was removed and then broached to a 13. A 13 fit very well and was reduced and on x-ray it was equal lengths with the left side as far as lesser trochanter and this was then removed and the actual implant was impacted into place and a dual mobility head was impacted on and this was reduced, had good motion with internal and external rotation and was very solid. The capsule was then repaired with #2 Ethibond in twqdjo-jf-[id number] fashion and then this was irrigated and tobramycin and vancomycin powder were placed as well OPERATIVE REPORT [id number] VERA PARKS CHRIS as Surgicel powder. The tensor fascia temo fascia was then closed in a irqybi-ol-hocqa and then a running locking stitch of 0 Vicryl and then the skin was closed with 2-0 Vicryl in inverted interrupted fashion and 4-0 Monocryl ran on the skin and Prineo glue placed on the skin. He was awakened and taken to recovery in stable condition. Blood loss approximately 300 mL. COMPLICATIONS: None. TRANSINT:[id number] Voice Confirmation ID: [id number] DOCUMENT ID: [id number] CHARANJIT MUNIZ DO at 1113 CC: NESTOR LOVELACE MD [id number] DICTATION DATE: 05/01/19 0949 AUDIT INTERN: 05/01/19 1033 ADM IN [facility] [address] [place] [address]
[2019-05-01 16:55] VITALS: BP 141/68
[2019-05-01 20:00] VITALS: BP 127/58
[2019-05-02] VITALS (7 sets, daily range): BP systolic 115–137; BP diastolic 46–55; Ht 180.3 cm; Wt 120.5 kg
--- NOTE | 2019-05-02 02:23 | NUR ---
PT RESTING IN BED. EYES CLOSED. NO SIGNS OF DISTRESS. BREATHING EVEN AND UNLABORED. IV SITE LT FA DRESSING CLEAN DRY AND INTACT. NO SIGNS OF INFECTION. BOWEL SOUNDS ACITVE. TELE MONITOR ON 66 SINUS. DRESSING RT HIP CLEAN DRY AND INTACT. WILL CONTINUE PLAN OF CARE. CALL LIGHT IN REACH. BED LOWERED AND LOCKED. AT BEDSIDE.
--- NOTE | 2019-05-02 04:44 | NUR ---
I have reviewed this patient and I concur with the Shift Assessment completed by the Licensed Practical Nurse today this shift.
[2019-05-02 05:20] LABS: BASOPHILS 0 % (0-2); EOSINOPHILS 0.1 % (0-7); HEMATOCRIT 35.6 % (42.0-54.0); HEMOGLOBIN 10.9 g/dL (13.5-17.5); IMMATURE GRANULOCYTES 0.3 % (0-5); LYMPHOCYTES 5.1 % (15-50); MCH 25.6 pg (26.0-34.0); MCHC 30.6 g/dL (31.0-37.0); MCV 83.8 fL (80.0-100.0); MEAN PLATELET VOLUME 10.6 fL (7.4-10.4); MONOCYTES 11.2 % (2-11); NEUTROPHILS 83.3 % (40-80); PLATELET COUNT 224 10x3/uL (130-400); RBC 4.25 10x6/uL (4.20-6.10); RDW 17.5 % (11.5-14.5); WBC 11.9 10x3/uL (4.8-10.8)
[2019-05-02 05:49] LABS: ALBUMIN 3.2 g/dL (3.4-5.0); ANION GAP 11.4 mmol/L (8-16); BILIRUBIN - TOTAL 0.65 mg/dL (0.2-1.3); CALCIUM 7.8 mg/dL (8.5-10.1); CARBON DIOXIDE 27.7 mmol/L (21.0-32.0); CREATININE - SERUM 2.4 mg/dL (0.6-1.3); POTASSIUM - SERUM 4.1 mmol/L (3.5-5.1); PROTEIN - SERUM 5.7 g/dL (6.4-8.2)
--- NOTE | 2019-05-02 07:35 | NUR ---
ALERT AND ORIENTED. LUNGS CLEAR BILATERALLY IN ALL STEVE. HEART SOUNDS S1 AND S2 HEARD IN ALL STEVE. BOWEL SOUNDS ACTIVE X 4. DRSG IN PLACE TO RIGHT HIP C/D/I. SKIN OTHERWISE INTACT WITHOUT REDNESS. IV TO LFA PATENT WITHOUT REDNESS. DENIES PAIN. DENIES NEEDS. BED LOW. CALL DURAN AND PERSONAL ITEMS IN REACH. WILL CONTINUE TO MONITOR.
--- NOTE | 2019-05-02 09:20 | NUR ---
PATIENT BLOOD PRESSURE 115/53. BLOOD PRESSURE MEDICATIONS HELD. PATIENT STATES DOES NOT WANT BP MEDICATION ANYWAY. STATES BP RUNNING LOW SINCE HOSPITAL ADMIT AND WANTS "SOMEONE TO FIGURE IT OUT." REFUSES NICOTINE PATCH.
--- NOTE | 2019-05-02 11:24 | NUR ---
PATIENT SLEEPING. AT BEDSIDE. WILL CONTINUE TO MONITOR.
[2019-05-02 12:59] LABS: APPEARANCE SL CLDY (CLEAR); BACTERIA MODERATE /hpf (NONE SEEN); BILIRUBIN NEGATIVE (NEGATIVE); COLOR YELLOW (YELLOW); EPITHELIAL CELLS 0-5 /hpf (0-5); GLUCOSE NEGATIVE (NEGATIVE); GRANULAR CAST RARE /lpf (NONE SEEN); KETONE SMALL mg/dL (NEGATIVE); MUCUS <1+ /lpf (NONE SEEN); NITRITE NEGATIVE (NEGATIVE); PROTEIN TRACE mg/dL (NEGATIVE); RED CELLS - URINE 25-50 /hpf (0-5); SPECIFIC GRAVITY 1.025 (1.005-1.020); UROBILINOGEN NORMAL (NORMAL); WHITE CELLS - URINE 0-5 /hpf (0-5)
[2019-05-02 13:00] LABS: HYALINE CAST 0-5 /lpf (NONE SEEN)
--- NOTE | 2019-05-02 13:50 | NUR ---
SITTING IN CHAIR AT BEDSIDE. BED LINENS CHANGED. DENIES FURTHER NEEDS. AT BEDSIDE. WILL CONTINUE TO MONITOR.
--- NOTE | 2019-05-02 14:21 | NUR ---
NOTIFIED LAB OF NEW URINE ORDERS. STATED TO COLLECT ORDERS IN COMPUTER AND THEY WOULD COLLECT IN LAB.
--- NOTE | 2019-05-02 15:30 | NUR ---
SITTING IN CHAIR AT BEDSIDE. DENIES PAIN. DENIES NEEDS. WILL CONTINUE TO MONITOR.
[2019-05-02 16:27] LABS: ERYTHROCYTE SEDIMENTATION RATE 1 mm/hr (0-20)
--- NOTE | 2019-05-02 18:31 | NUR ---
RESTING IN BED. BED LOW. CALL DURAN AND PERSONAL ITEMS IN REACH. AT BEDSIDE.
--- NOTE | 2019-05-02 21:00 | NUR ---
PT SITTING UP IN BED WITHOUT DISTRESS. ALERT AND ORIENTED. DRESSING TO RIGHT HIP CDI. IV LEFT FA INFUSING 1/2NS @ 100. HR 67SR PER TELE. BP 129/55, HELD BP MEDS. STATES PAIN 4/10, GIVEN OXY [address] DENIES NEEDS AT THIS TIME. CL IN REACH, WILL CTM
[2019-05-03] VITALS: BP 131/54
--- NOTE | 2019-05-03 01:00 | NUR ---
PT IV DISCONNECTED FROM LOOP AND LEAKED OVER BED AND GOWN. CHANGED LINEN AND GOWN. REQUESTED AND GIVEN WATER, DENIES OTHER NEEDS. CL IN REACH, WILL CTM
[2019-05-03 04:27] VITALS: BP 142/59
[2019-05-03 05:29] LABS: BASOPHILS 0.2 % (0-2); EOSINOPHILS 2.9 % (0-7); HEMOGLOBIN 10.5 g/dL (13.5-17.5); IMMATURE GRANULOCYTES 0.3 % (0-5); LYMPHOCYTES 10.5 % (15-50); MCHC 30.9 g/dL (31.0-37.0); MCV 84.2 fL (80.0-100.0); MEAN PLATELET VOLUME 10.3 fL (7.4-10.4); MONOCYTES 12.2 % (2-11); NEUTROPHILS 73.9 % (40-80); PLATELET COUNT 197 10x3/uL (130-400); RBC 4.04 10x6/uL (4.20-6.10); RDW 17.1 % (11.5-14.5); WBC 10.4 10x3/uL (4.8-10.8)
[2019-05-03 06:08] LABS: ALBUMIN 3.1 g/dL (3.4-5.0); ANION GAP 9.6 mmol/L (8-16); BILIRUBIN - TOTAL 0.56 mg/dL (0.2-1.3); CALCIUM 7.7 mg/dL (8.5-10.1); CARBON DIOXIDE 30.2 mmol/L (21.0-32.0); CREATININE - SERUM 2.3 mg/dL (0.6-1.3); POTASSIUM - SERUM 3.8 mmol/L (3.5-5.1); PROTEIN - SERUM 5.8 g/dL (6.4-8.2)
--- NOTE | 2019-05-03 06:30 | NUR ---
COLLECTED URINE SAMPLE AND SENT TO LAB
[2019-05-03 06:42] LABS: CREATININE - URINE 98.7 mg/dL (30-125); PRO/CRE RATIO URINE 0.9 mg/g; PROTEIN - URINE 93.5 mg/dL (0.0-11.9)
--- NOTE | 2019-05-03 08:01 | NUR ---
ALERT AND ORIENTED. LUNGS CLEAR BILATERALLY IN ALL STEVE. HEART SOUNDS S1 AND S2 HEARD IN ALL STEVE. BOWEL SOUNDS ACTIVE X 4. DRSG C/D/I TO RIGHT HIP. SKIN OTHERWISE INTACT WITHOUT REDNESS. IV TO LFA PATENT WITHOUT REDNESS. DENIES PAIN. DENIES NEEDS. BED LOW. FALL PRECAUTIONS IN PLACE. CALL DURAN AND PERSONAL ITEMS IN REACH. WILL CONTINUE TO MONITOR.
[2019-05-03 08:17] LABS: APPEARANCE HAZY (CLEAR); BILIRUBIN NEGATIVE (NEGATIVE); COLOR YELLOW (YELLOW); GLUCOSE NEGATIVE (NEGATIVE); KETONE NEGATIVE (NEGATIVE); NITRITE NEGATIVE (NEGATIVE); PROTEIN NEGATIVE (NEGATIVE); SPECIFIC GRAVITY 1.015 (1.005-1.020); UROBILINOGEN NORMAL (NORMAL)
[2019-05-03 08:18] LABS: BACTERIA MODERATE /hpf (NONE SEEN); EPITHELIAL CELLS OCC /hpf (0-5); GRANULAR CAST RARE /lpf (NONE SEEN); HYALINE CAST OCC /lpf (NONE SEEN); MUCUS <1+ /lpf (NONE SEEN); WHITE CELLS - URINE RARE /hpf (0-5)
[2019-05-03 10:02] VITALS: BP 119/56
--- NOTE | 2019-05-03 11:08 | NUR ---
SITTING IN CHAIR AT BEDSIDE. DENIES PAIN. DENIES NEEDS. AT BEDSIDE. WILL CONTINUE TO MONITOR.
[2019-05-03 13:20] VITALS: BP 158/62
--- NOTE | 2019-05-03 14:52 | NUR ---
SLEEPING IN CHAIR AT BEDSIDE. WILL CONTINUE TO MONITOR.
[2019-05-03 15:11] LABS: SPE - A/G RATIO 1.5 (0.7-1.7); SPE - ALBUMIN 3.2 g/dL (2.9-4.4); SPE - ALPHA-1 GLOBULIN 0.3 g/dL (0.0-0.4); SPE - ALPHA-2 GLOBULIN 0.6 g/dL (0.4-1.0); SPE - BETA GLOBULIN 0.8 g/dL (0.7-1.3); SPE - GAMMA GLOBULIN 0.5 g/dL (0.4-1.8); SPE - M-SPIKE Not Observed g/dL (Not Observed); SPE - TOTAL PROTEIN 5.3 g/dL (6.0-8.5)
--- NOTE | 2019-05-03 16:01 | MORECARE ---
CASE MANAGEMENT DISCHARGE SUMMARY PATIENT: VERA PARKS UNIT: [id number] ADM DATE: 05/01/19 AGE: 69 : 48 SEX: M ROOM/BED: D.2213 AUTHOR: PAMELA MORALES PHYSICIAN: REFERRING PHYSICIAN: MOSES MUNIZ DO DATE OF SERVICE: 05/03/19 Discharge Plan Patient Name: VERA PARKS [facility] [facility] 1950 Planned Disposition: Home or Self Care Anticipated Discharge Date: Discharge Date: Expected LOS: Initial Reviewer: [email or web address] Initial Review Date: 05/01/2019 Generated: 05/03/19 5:01 pm DCPIA - Discharge Planning Initial Assessment Updated by [email or web address]: Brenda Muniz on 05/03/19 3:58 pm * Is the patient Alert and Oriented? Yes * How many steps to enter\exit or inside your home? 02/16 * PCP [facility] * Pharmacy [facility] [address] * Preadmission Environment Home with Family * ADLs Independent * Equipment None * List name and contact numbers for known caregivers / representatives who currently or will assist patient after discharge: PAT () [phone] * Verbal permission to speak to the caregivers and representatives has been obtained from the patient. Yes * Community resources currently utilized None * Additional services required to return to the preadmission environment? Yes * Can the patient safely return to the preadmission environment? Yes * Has this patient been hospitalized within the prior 30 days at any hospital? No Patient Name: VERA PARKS Page 54610 at 1601 All edits/amendments must be made on the electronic document DICTATION DATE: 05/03/19 160 MATERIAL SPREADER: TRACY 05/03/19 160 RPT#: [id number] DC DATE: STATUS: ADM IN [facility] [address] [place] [address] END OF REPORT
--- NOTE | 2019-05-03 16:09 | MORECARE ---
CASE MANAGEMENT DISCHARGE SUMMARY PATIENT: VERA PARKS UNIT: [id number] ADM DATE: 05/01/19 AGE: 69 : 48 SEX: M ROOM/BED: D.2213 AUTHOR: PAMELA MORALES PHYSICIAN: REFERRING PHYSICIAN: MOSES MUNIZ DO DATE OF SERVICE: 05/03/19 Discharge Plan Patient Name: VERA PARKS Facility: [facility]:[place] : 1950 Planned Disposition: Home or Self Care Anticipated Discharge Date: Discharge Date: Expected LOS: Initial Reviewer: [email or web address] Initial Review Date: 05/01/2019 Generated: 05/03/19 5:08 pm Comments DCP- Discharge Planning Updated by [email or web address]: Brenda Muniz on 05/03/19 3:[address] Patient Name: VERA PARKS Admission Status: Elective Accout number: [id number] Admission Date: 05-01-2019 : 1950 Admission Diagnosis:UNILATERAL PRIMARY OSTEOARTHRITIS, RIGHT HIP Attending: MOSES MUNIZ Current LOS: 2 Anticipated DC Date: Planned Disposition: Home or Self Care Primary Insurance: MEDICARE A & B Discharge Planning Comments: CM met with patient & to complete initial dc planning assessment. CM educated patient on the CM role and verbal consent given by patient to complete assessment. Patient lives at home with his where he is independent with his care. At discharge patient plans to return home and feels this is a safe discharge. CM discussed availability of home health, rehab services, and medical equipment. he does not have any DME and a walker has been ordered from [facility] by Dr Muniz's office. He would like to do OP PT at [facility] , I have made that appointment for Tuesdaymay 07 @ 1:00. I spoke with Manda. He also would like a BSC ordered, because there are 10 steps in his home to the bathroom. Patient denied known discharge needs at this time. CM will continue to follow and will assist as needed with dc plans/needs. Manager Drug Safety: Brenda Muniz DCPIA - Discharge Planning Initial Assessment Updated by [email or web address]: Brenda Muniz on 05/03/19 3:58 pm * Is the patient Alert and Oriented? Yes * How many steps to enter\exit or inside your home? 02/16 * PCP [facility] * [facility] [address] * Preadmission Environment Home with Family * ADLs Independent * Equipment None * List name and contact numbers for known caregivers / representatives who currently or will assist patient after discharge: ELVA () [phone] * Verbal permission to speak to the caregivers and representatives has been obtained from the patient. Yes * Community resources currently utilized None * Additional services required to return to the preadmission environment? Yes * Can the patient safely return to the preadmission environment? Yes * Has this patient been hospitalized within the prior 30 days at any hospital? No Last DP export: 05/03/19 3:01 p Patient Name: VERA PARKS Page [id number] at 1609 All edits/amendments must be made on the electronic document DICTATION DATE: 05/03/191607 CHANNEL MARKETING PROGRAM MANAGER: TRACY 05/03/191607 RPT#: [id number] DC DATE: STATUS: ADM IN [facility] [address] [place] [address] END OF REPORT
[2019-05-03 16:59] VITALS: BP 98/65
--- NOTE | 2019-05-03 18:26 | NUR ---
RESTING IN BED. BED LOW. FALL PRECAUTIONS IN PLACE. CALL DURAN AND PERSONAL ITEMS IN REACH.
--- NOTE | 2019-05-03 19:45 | NUR ---
PT SITTING UP IN BED WITHOUT DISTRESS. ALERT AND ORIENTED. STATES PAIN IN RIGHT HIP 11/19. RIGHT HIP INCISION DRESSING CDI. AT BEDSIDE, DENIES NEEDS. CL IN REACH,WILL CTM
[2019-05-03 21:44] VITALS: BP 140/52
[2019-05-04] VITALS: BP 126/54
--- NOTE | 2019-05-04 05:30 | NUR ---
PT STATES PAIN 3/10, UNABLE TO GET COMFORTABLE. MOVED FROM BEDSIDE TO CHAIR TO BED VIA WALKER. REQUESTED PAIN MED, GAVE OXY ORDERED. DENIES OTHER NEEDS. CL IN REACH, WILL CTM
[2019-05-04 05:59] LABS: BASOPHILS 0.2 % (0-2); EOSINOPHILS 2.4 % (0-7); HEMATOCRIT 33.7 % (42.0-54.0); HEMOGLOBIN 10.7 g/dL (13.5-17.5); IMMATURE GRANULOCYTES 0.3 % (0-5); LYMPHOCYTES 8.6 % (15-50); MCH 26.6 pg (26.0-34.0); MCHC 31.8 g/dL (31.0-37.0); MCV 83.8 fL (80.0-100.0); MEAN PLATELET VOLUME 10.4 fL (7.4-10.4); MONOCYTES 14.7 % (2-11); NEUTROPHILS 73.8 % (40-80); PLATELET COUNT 211 10x3/uL (130-400); RBC 4.02 10x6/uL (4.20-6.10); RDW 17.1 % (11.5-14.5); WBC 11.1 10x3/uL (4.8-10.8)
[2019-05-04 06:29] LABS: ALBUMIN 3.1 g/dL (3.4-5.0); ANION GAP 12.1 mmol/L (8-16); BILIRUBIN - TOTAL 0.9 mg/dL (0.2-1.3); CALCIUM 8.1 mg/dL (8.5-10.1); CARBON DIOXIDE 26.7 mmol/L (21.0-32.0); POTASSIUM - SERUM 3.8 mmol/L (3.5-5.1); PROTEIN - SERUM 5.9 g/dL (6.4-8.2)
[2019-05-04 06:31] LABS: CREATININE - SERUM 1.7 mg/dL (0.6-1.3)
[2019-05-04 08:25] VITALS: BP 138/50
[2019-05-04] MEDS ORDERED: VISTARIL50 MG PO (11:32)
[2019-05-04] MEDS ORDERED: OXYCODONE HCL5 M1 PO (11:32)
[2019-05-04] MEDS ORDERED: BACTRIM 400-801 TAB PO (11:33)
--- NOTE | 2019-05-04 12:48 | MORECARE ---
CASE MANAGEMENT DISCHARGE SUMMARY PATIENT: VERA PARKS UNIT: [id number] ADM DATE: 05/01/19 AGE: 69 : 48 SEX: M ROOM/BED: D.2213 AUTHOR: PAMELA MORALES PHYSICIAN: REFERRING PHYSICIAN: MOSES MUNIZ DO DATE OF SERVICE: 05/04/19 Discharge Plan Patient Name: VERA PARKS Facility: [facility]:[place] : 1950 Planned Disposition: Home or Self Care Anticipated Discharge Date: Discharge Date: Expected LOS: Initial Reviewer: [email or web address] Initial Review Date: 05/01/2019 Generated: 05/04/19 1:48 pm Comments DCP- Discharge Planning Updated by [email or web address]: Brenda Muniz on 05/03/19 3:[address] Patient Name: VERA PARKS Admission Status: Elective Accout number: [id number] Admission Date: 05-01-2019 : 1950 Admission Diagnosis:UNILATERAL PRIMARY OSTEOARTHRITIS, RIGHT HIP Attending: MOSES MUNIZ Current LOS: 2 Anticipated DC Date: Planned Disposition: Home or Self Care Primary Insurance: MEDICARE A & B Discharge Planning Comments: CM met with patient & to complete initial dc planning assessment. CM educated patient on the CM role and verbal consent given by patient to complete assessment. Patient lives at home with his where he is independent with his care. At discharge patient plans to return home and feels this is a safe discharge. CM discussed availability of home health, rehab services, and medical equipment. he does not have any DME and a walker has been ordered from [facility] by Dr Muniz's office. He would like to do OP PT at [facility] , I have made that appointment for Tuesdaymay 07 @ 1:00. I spoke with Manda. He also would like a BSC ordered, because there are 10 steps in his home to the bathroom. Patient denied known discharge needs at this time. CM will continue to follow and will assist as needed with dc plans/needs. Care Team Assistant: Brenda Muniz DCPIA - Discharge Planning Initial Assessment Updated by [email or web address]: Brenda Muniz on 05/03/19 3:58 pm * Is the patient Alert and Oriented? Yes * How many steps to enter\exit or inside your home? 02/16 * PCP [facility] * [facility] [address] * Preadmission Environment Home with Family * ADLs Independent * Equipment None * List name and contact numbers for known caregivers / representatives who currently or will assist patient after discharge: ELVA () [phone] * Verbal permission to speak to the caregivers and representatives has been obtained from the patient. Yes * Community resources currently utilized None * Additional services required to return to the preadmission environment? Yes * Can the patient safely return to the preadmission environment? Yes * Has this patient been hospitalized within the prior 30 days at any hospital? No External Providers [facility] Next Contact Date: Service Request Date: Service Type: Resolution: Reviewer: Comments: Last DP export: 05/03/19 3:09 p Patient Name: VERA PARKS Page 61512 at 1248 All edits/amendments must be made on the electronic document DICTATION DATE: 05/04/19 1248 COMPOUND MACHINE OPERATOR: TRACY 05/04/19 1248 RPT#: [id number] DC DATE: STATUS: ADM IN [facility] [address] [place] [address] END OF REPORT
--- NOTE | 2019-05-04 14:25 | NUR ---
DISCHARGE INSTRUCTIONS GIVEN. SEEMS TO UNDERSTAND INSTRUCTIONS. IV OUT TIP INTACT. DENIES ANY NEED BEFORE LEAVING. LEFT HOSPITAL STAFF TO GO HOME IN PERSONAL RIDE TO GO HOME. NO SIGNS OF DISTRESS.
--- NOTE | 2019-05-04 14:31 | MORECARE ---
CASE MANAGEMENT DISCHARGE SUMMARY PATIENT: VERA PARKS UNIT: [id number] ADM DATE: 05/01/19 AGE: 69 : 48 SEX: M ROOM/BED: D.2213 AUTHOR: ANDREW,DOC PHYSICIAN: REFERRING PHYSICIAN: MOSES MUNIZ DO DATE OF SERVICE: 05/04/19 Discharge Plan Patient Name: VERA PARKS Facility: [facility]:[place] : 1950 Planned Disposition: Home or Self Care Anticipated Discharge Date: Discharge Date: 05/04/2019 Expected LOS: Initial Reviewer: [email or web address] Initial Review Date: 05/01/2019 Generated: 05/04/19 3:31 pm Comments DCP- Discharge Planning Updated by [email or web address]: Brenda Muniz on 05/04/19 1:[address] Patient will dc home today, BSC and Walker delivered to hospital from [facility] IMM served and explained. CM to follow as needed DCP- Discharge Planning Updated by [email or web address]: Brenda Muniz on 05/03/19 3:[address] Patient Name: VERA PARKS Admission Status: Elective Accout number: [id number] Admission Date: 05-01-2019 : 1950 Admission Diagnosis:UNILATERAL PRIMARY OSTEOARTHRITIS, RIGHT HIP Attending: MOSES MUNIZ Current LOS: 2 Anticipated DC Date: Planned Disposition: Home or Self Care Primary Insurance: MEDICARE A & B Discharge Planning Comments: CM met with patient & to complete initial dc planning assessment. CM educated patient on the CM role and verbal consent given by patient to complete assessment. Patient lives at home with his where he is independent with his care. At discharge patient plans to return home and feels this is a safe discharge. CM discussed availability of home health, rehab services, and medical equipment. he does not have any DME and a walker has been ordered from [facility] by Dr Muniz's office. He would like to do OP PT at [facility] , I have made that appointment for Tuesdaymay 07 @ 1:00. I spoke with Manda. He also would like a BSC ordered, because there are 10 steps in his home to the bathroom. Patient denied known discharge needs at this time. CM will continue to follow and will assist as needed with dc plans/needs. Court Abstractor: Brenda Muniz DCPIA - Discharge Planning Initial Assessment Updated by [email or web address]: Brenad Muniz on 05/03/19 3:58 pm * Is the patient Alert and Oriented? Yes * How many steps to enter\exit or inside your home? 02/16 * PCP [facility] * Pharmacy [facility] [address] * Preadmission Environment Home with Family * ADLs Independent * Equipment None * List name and contact numbers for known caregivers / representatives who currently or will assist patient after discharge: ELVA () [phone] * Verbal permission to speak to the caregivers and representatives has been obtained from the patient. Yes * Community resources currently utilized None * Additional services required to return to the preadmission environment? Yes * Can the patient safely return to the preadmission environment? Yes * Has this patient been hospitalized within the prior 30 days at any hospital? No Coverage Notice Reviewer: [email or web address] - Brenda Muniz Notice Issued Date-Time: 05/04/2019 14:00 Notice Type: IM Discharge Notice Notice Delivered To: Patient Relationship to Patient: Physical Therapy Teacher Name: Delivery Method: HAND - Hand Delivered Shahnaz Days: Prior Verbal Notification: Recipient Understood Notice: Yes Recipient Signature: Yes Med Rec Note Co-signed by Attending: Coverage Notice Comment: Last DP export: 05/04/19 11:48 a Patient Name: VERA PARKS Page 44434 at 1431 All edits/amendments must be made on the electronic document DICTATION DATE: 05/04/19 1431 BIZTALK SOFTWARE DEVELOPER: TRACY 05/04/19 1431 RPT#: [id number] DC DATE:05/04/19 STATUS: DIS IN [facility] [address] [place] [address] END OF REPORT
[2019-05-04 15:09] LABS: UPE RAND - ALPHA 1 GLOBULIN 9.2 % (()); UPE RAND - GAMMA GLOBULIN 20.9 % (())
== END 2019-05-04 14:27 | disposition home or self-care (01) | DRG 470 ==
LOC: D.MS 05-01 05:00 → D.SDCHOLD 05-01 05:00 → D.MS 05-01 10:53
PROVIDERS: Emergency Medicine; Internal Medicine Nephrology; ADMIT Orthopaedic Surgery; ATTEND Orthopaedic Surgery
PROC: 0SR90J9 Replacement of Right Hip Joint with Synthetic Substitute, Cemented, Open Approach (ICD-10-PCS; principal; 2019-05-01 07:00)
DX: M16.11 Unilateral primary osteoarthritis, right hip (principal); N17.9 Acute kidney failure, unspecified; I10 Essential (primary) hypertension; I48.91 Unspecified atrial fibrillation; I25.10 Atherosclerotic heart disease of native coronary artery without angina pectoris

== ENCOUNTER → 2019-04-26 10:04 | Outpatient (CLI) | payer MEDICARE, BC ==
[2019-02-28 12:27] VITALS: BMI 37.0
== END | disposition home or self-care (01) ==
LOC: D.CT 10:04
PROVIDERS: ATTEND Radiology Diagnostic Radiology
DX: N28.89 Other specified disorders of kidney and ureter (principal)

== ENCOUNTER 2019-06-24 08:11 | Emergency (ER) | payer MEDICARE, BC ==
[~2019-06-24] VITALS: Ht 180.3 cm; Wt 120.5 kg
[~2019-06-24 08:11] MED LIST changes: +BACTRIM 400-801 TAB PO; +OXYCODONE HCL5 M1 PO; +VISTARIL50 MG PO
[2019-06-24 08:16] VITALS: Ht 180.3 cm; Wt 120.5 kg
[2019-06-24 08:35] LABS: APPEARANCE CLEAR (CLEAR); BILIRUBIN NEGATIVE (NEGATIVE); COLOR YELLOW (YELLOW); GLUCOSE NEGATIVE (NEGATIVE); KETONE NEGATIVE (NEGATIVE); NITRITE NEGATIVE (NEGATIVE); PROTEIN TRACE mg/dL (NEGATIVE); SPECIFIC GRAVITY 1.015 (1.005-1.020); UROBILINOGEN NORMAL (NORMAL)
[2019-06-24 08:48] LABS: BASOPHILS 0.1 % (0-2); EOSINOPHILS 0.3 % (0-7); HEMATOCRIT 41.7 % (42.0-54.0); HEMOGLOBIN 13.8 g/dL (13.5-17.5); IMMATURE GRANULOCYTES 0.3 % (0-5); LYMPHOCYTES 7.2 % (15-50); MCHC 33.1 g/dL (31.0-37.0); MCV 81.6 fL (80.0-100.0); MEAN PLATELET VOLUME 9.8 fL (7.4-10.4); MONOCYTES 7.9 % (2-11); NEUTROPHILS 84.2 % (40-80); PLATELET COUNT 228 10x3/uL (130-400); RBC 5.11 10x6/uL (4.20-6.10); RDW 17.3 % (11.5-14.5); WBC 15.7 10x3/uL (4.8-10.8)
[2019-06-24 08:48] LABS: BACTERIA FEW /hpf (NONE SEEN); EPITHELIAL CELLS NSEEN /hpf (0-5); RED CELLS - URINE 25-50 /hpf (0-5); WHITE CELLS - URINE NSEEN /hpf (0-5)
[2019-06-24 08:57] LABS: ALBUMIN 3.8 g/dL (3.4-5.0); ANION GAP 12.6 mmol/L (8-16); BILIRUBIN - TOTAL 0.76 mg/dL (0.2-1.3); CALCIUM 9.7 mg/dL (8.5-10.1); CARBON DIOXIDE 26.5 mmol/L (21.0-32.0); CREATININE - SERUM 1.4 mg/dL (0.6-1.3); POTASSIUM - SERUM 4.1 mmol/L (3.5-5.1); PROTEIN - SERUM 6.8 g/dL (6.4-8.2)
[2019-06-24] MEDS ORDERED: HYDROCODON-ACE1 EAC7 PO (09:14)
[2019-06-24] MEDS ORDERED: TORADOL10 MG PO (09:14)
[2019-06-24 09:26] VITALS: BP 150/68
== END 2019-06-24 09:27 | disposition home or self-care (01) ==
LOC: D.ER 08:11
PROVIDERS: Emergency Medicine
DX: N20.1 Calculus of ureter (principal); K21.9 Gastro-esophageal reflux disease without esophagitis; I10 Essential (primary) hypertension

== ENCOUNTER → 2019-10-01 10:54 | Outpatient (CLI) | payer MEDICARE, BC ==
[2019-06-24 08:16] VITALS: BMI 37.0
[~2019-10-01 10:54] MED LIST changes: +TORADOL10 MG PO
== END | disposition home or self-care (01) ==
LOC: D.MRI 10:54
PROVIDERS: ATTEND Orthopaedic Surgery
DX: M54.16 Radiculopathy, lumbar region (principal)

== ENCOUNTER → 2019-10-15 08:50 | Outpatient (CLI) | payer MEDICARE, BC ==
[2019-06-24 08:16] VITALS: BMI 37.0
--- NOTE | ~2019-10-15 | HEMODYNAMI ---
PATIENT:VERA PARKS MEDICAL RECORD: [id number] : [birth year] [id number] AD[facility]ION DATE: 10/15/19 Generatedon:10/15/201910:21 Patient name: VERA PARKS Patient #: [id number] SSN: : Date of study: 10/15/2019 Page: Of Hemodynamic Procedure Report Patient Data Patient Demographics Procedure consent was obtained First Name: VERA Gender: Male Last Name: KASEY : 1950 [facility] Initial: CHRIS Age: 69 year(s) Patient #: [id number] Race: Unknown Additional ID: [id number] Contact details Address: [address] [place] [address] State: [place] City: [place] Zip code: [address] Past Medical History Allergies Allergen Reaction Date Comments Reported Penicillins 10/31/2018 Penicillins 01/12/2019 Penicillins 10/15/2019 Admission Admission Data Admission Date: 10/15/2019 Admission Time: 8:50 Procedure Procedure Types Cath Procedure Peripheral Cath Diagnostic Procedure Mine Motor Engineer Peripheral Procedures Miscellaneous Epidural Steroid Injection Procedure Description Procedure Date Procedure Date: 10/15/2019 Procedure Start Time: 10:05 Procedure Staff Name Function Akbar Valerio MD Performing Physician Lurdes Hackett RT Gis Physical Scientist Mayank Stephens RT Scrub Procedure Data Cath Procedure Fluoroscopy Diagnostic fluoroscopy Total fluoroscopy Time: 1.4 time: 1.4 min min Diagnostic fluoroscopy Total fluoroscopy dose: 80 dose: 80 mGy mGy Hemodynamics Rest Pre Cath Intra NCS Post Cath Procedure Log Time Note 18:40:47 BANDAIDE APPLIED SIT STABLE PT SENT HOME 9:19:50 KIT EPIDURAL CATHETERIZATION opened to sterile field. 9:23:39 Time tracking: Regular hours (M-F 7:00 - 5:00) 9:23:45 Signed procedure consent form obtained from patient. 9:23:48 Pre-procedure instructions explained to patient. 9:23:50 Pre-op teaching completed and patient verbalized understanding. 9:24:03 Patient allergic to Penicillins 9:24:11 - 9:59:53 Lumbar area was prepped with betadine and draped in sterile fashion 10:05:03 Physician arrived 10:05:03 --------ALL STOP TIME OUT------ 10:05:05 Final Timeout: patient, procedure, and site verified with staff and physician. All members of the team are in agreement. 10:05:08 Lumbar site verified by team. 10:05:15 Sedation plan: Local Anesthetic Medication:Lidocaine 10:05:30 Procedure started. 10:05:31 Full Disclosure recording started 10:05:45 Local anesthetic to Lumbar area with Lidocaine 1% by Akbar Valerio MD.INITIAL ACCESS ONLY 10:06:03 KIT EPIDURAL CATHETERIZATION opened to sterile field. 10:17:36 Procedure ended.(Physican Out) 10:20:20 Fluoroscopy time 01.40 minutes. 10:20:29 Fluoroscopy dose: 80 mGy 10:20:29 Flurop Dose total: 80 Device Usage Item Name Manufacture Quantity Catalog Hospital Part Current [facility] l Lot# / Number Charge Number Stock Stock Serial# Code KIT EPIDURAL Teleflex 2 [id number] CATHETERIZATION Signature Audit [place] Stage Time Signature Unsigned Intra-Procedure 10/15/2019 Mayank 10:21:47 AM Angelo RT (R) () [facility] [address] [place] [address]
== END | disposition home or self-care (01) ==
LOC: D.RAD 08:50
PROVIDERS: ATTEND Orthopaedic Surgery
DX: M54.16 Radiculopathy, lumbar region (principal)

== ENCOUNTER → 2019-10-19 08:40 | Outpatient (CLI) | payer MEDICARE, BC ==
[2019-06-24 08:16] VITALS: BMI 37.0
[~2019-10-19 08:40] MED LIST changes: +HYDROCORTISONE30 G9 TOPICAL; +NORVASC5 MG PO; +VOLTAREN100 GM TOPICAL; +[UNRECOGNIZED DRUG - OTHER]
[2019-10-19 09:49] LABS: CREATININE - SERUM 1.3 mg/dL (0.6-1.3)
== END | disposition home or self-care (01) ==
LOC: D.CT 08:40
PROVIDERS: ATTEND Urology
DX: N20.0 Calculus of kidney (principal)

== ENCOUNTER 2019-10-23 08:40 | Inpatient (IN) | payer MEDICARE, BC ==
[2019-10-22 10:47] LABS: BASOPHILS 0.1 % (0-2); EOSINOPHILS 2.7 % (0-7); HEMATOCRIT 42.8 % (42.0-54.0); HEMOGLOBIN 13.5 g/dL (13.5-17.5); IMMATURE GRANULOCYTES 0.2 % (0-5); LYMPHOCYTES 12.1 % (15-50); MCH 26.8 pg (26.0-34.0); MCHC 31.5 g/dL (31.0-37.0); MCV 85.1 fL (80.0-100.0); MEAN PLATELET VOLUME 9.5 fL (7.4-10.4); MONOCYTES 9.1 % (2-11); NEUTROPHILS 75.8 % (40-80); PLATELET COUNT 251 10x3/uL (130-400); RBC 5.03 10x6/uL (4.20-6.10); RDW 14.6 % (11.5-14.5); WBC 10.5 10x3/uL (4.8-10.8)
[2019-10-22 11:02] LABS: CALCIUM 8.9 mg/dL (8.5-10.1); CARBON DIOXIDE 32.1 mmol/L (21.0-32.0); CREATININE - SERUM 1.4 mg/dL (0.6-1.3); POTASSIUM - SERUM 4.1 mmol/L (3.5-5.1)
[2019-10-22 11:12] LABS: APTT 27.6 SECONDS (22.8-39.4); PROTIME 13.2 SECONDS (11.6-15.0)
[2019-10-23] VITALS (9 sets, daily range): BP systolic 128–149; BP diastolic 59–88; Ht 180.3 cm; Wt 124.5 kg
[~2019-10-23] VITALS: Ht 180.3 cm; Wt 124.5 kg
--- NOTE | ~2019-10-23 | HEMODYNAMI ---
PATIENT:VERA PARKS MEDICAL RECORD: [id number] : 46 LOCATION:[facility] ADMISSION DATE: 10/23/19 Generatedon:10/23/201914:04 Patient name: VERA PARKS Patient #: [id number] SSN: : Date of study: 10/23/2019 Page: Of Hemodynamic Procedure Report Patient Data Patient Demographics Procedure consent was obtained First Name: VERA Gender: Male Last Name: KASEY : 1950 [facility] Initial: CHRIS Age: 69 year(s) Patient #: [id number] Race: Unknown Additional ID: [id number] Contact details [address]: [address] [place] [address] State: [place] City: [place] Zip code: [address] Past Medical History Allergies Allergen Reaction Date Comments Reported Penicillins 10/31/2018 Penicillins 01/12/2019 Penicillins 10/15/2019 Other allergy 10/23/2019 PCN Admission Admission Data Admission Date: 10/23/2019 Admission Time: 8:40 Procedure Procedure Types Cath Procedure Peripheral Cath Diagnostic Procedure Nephro Perc Neph Uret Cath Procedure Description Procedure Date Procedure Date: 10/23/2019 Procedure Start Time: 11:11 Procedure End Time: 11:33 Procedure Staff Name Function Mayank Stephens RT Scrub Charanjit Hightower MD Performing Physician Farida Anderson RN Nurse MICHELLE ROACH RT Monitor Procedure Data Cath Procedure Fluoroscopy Diagnostic fluoroscopy Total fluoroscopy Time: 3.6 time: 3.6 min min Contrast Material Contrast Material Type Amount (ml) Isovue 300 15 Procedure Medications Medication Administration Route Dosage Heparin Flush Bag added to field 2 bags (1000units/500ml NS) Lidocaine 1% added to field 20 Versed I.V. 1 mg Fentanyl I.V. 50 mcg Benadryl I.V. 50 mg Versed I.V. 1 mg Fentanyl I.V. 50 mcg Hemodynamics Rest Heart Rate: 65 (bpm) Snapshots Pre Cath Intra NCS Post Cath Vital Signs Time Heart Resp SPO2 etCO2 NIBP (mmHg) Rhythm Pain Sedation Rate (ipm) (%) (mmHg) Status Level (bpm) 10:48:57 66 11 18.8 Measuring NSR 0 (11) 10(A) , No pain 10:49:46 67 15 0 152/84(108) NSR 0 (11) 10(A) , No pain 10:54:06 64 31 14.3 170/96(122) NSR 0 (11) 10(A) , No pain 10:59:05 67 14 99 26.4 Measuring NSR 0 (11) 10(A) , No pain 10:59:28 60 11 99 0.7 169/69(113) NSR 0 (11) 10(A) , No pain 11:04:00 65 10 98 37.7 111/93(99) NSR 0 (11) 10(A) , No pain 11:08:59 65 13 98 35.5 Measuring NSR 0 (11) 10(A) , No pain 11:09:07 62 13 98 3 189/96(126) NSR 0 (11) 10(A) , No pain 11:12:20 62 7 97 34.7 159/82(112) NSR 0 (11) 8(A) , No pain 11:16:38 62 12 95 53.7 135/90(102) NSR 0 (11) 8(A) , No pain 11:21:00 60 23 94 54.4 142/67(111) NSR 0 (11) 8(A) , No pain 11:25:22 62 30 96 50.6 140/70(107) NSR 0 (11) 8(A) , No pain 11:29:47 60 9 95 37.7 126/69(95) NSR 0 (11) 8(A) , No pain Medications Time Medication Route Dose Verified Delivered Reason Notes Effe ctiveness by by 10:58:17 Heparin Flush added 2 Charanjit Donohue used for Bag to bags Hightower Hightower procedure (1000units/500ml field MD BEDOLLA NS) 10:58:29 Lidocaine 1% added 20ml Charanjit Donohue for local to vial Hightower Hightower anesthetic field MD BEDOLLA 11:00:20 Benadryl I.V. 50 mg Charanjit Iqbal Per Hightower Justin JACKSON physician 11:10:39 Versed I.V. 1 mg Charanjit Iqbal for Hightowerpetra Anderson RN sedation 11:10:53 Fentanyl I.V. 50 Charanjit Iqbal for mcg Campbell Anderson RN sedation 11:12:06 Versed I.V. 1 mg Charanjit Iqbal for Hightowerpetra Anderson RN sedation 11:12:14 Fentanyl I.V. 50 Charanjit Iqbal for mcg Hightowerpetra Anderson RN sedation Procedure Log Time Note 9:27:08 Use device set IR Diagnostic 9:27:10 Bag Decanter (2002S) opened to sterile field. 9:27:11 Tegaderm 4 x 4 (1626W) opened to sterile field. 9:27:11 Sterile Angiographic Pack opened to sterile field. 10:19:11 Mayank Stephens RT (R) (CV) sent for patient. Start room use. 10:19:13 Time tracking: Regular hours (M-F 7:00 - 5:00) 10:19:18 Plan of Care:Hemodynamics will remain stable., Cardiac rhythm will remain stable., Comfort level will be maintained., Respiratory function will remain adequate., Patient/ family verbilizes understanding of procedure., Procedure tolerated without complication., Recovers from procedure without complications.. 10:19:24 Patient received from Outpatients to IR Alert and oriented. Tansferred to table in Prone position. 10:19:26 Signed procedure consent form obtained from patient. 10:19:27 Warm blankets applied, and cyn hugger turned on for patient comfort. 10:19:28 Correct patient and procedure confirmed by team. 10:19:32 ECG and BP/O2 sat monitors applied to patient. 10:19:37 H&P Date Dictated: 10/23/2019 H&P Addendum completed by physician on day of procedure. (MUST COMPLETE FOR ALL OUTPATIENTS). 10:19:38 Pre-procedure instructions explained to patient. 10:19:39 Pre-op teaching completed and patient verbalized understanding. 10:19:44 Patient NPO since Midnight. 10:20:13 Patient allergic to Other allergyPCN 10:20:21 Is patient on blood thinner?Yes last dose 10/17/2019 10:20:49 Patient diabetic? No. 10:20:50 - 10:20:55 ----Pre-sedation anethsthesia assessment.---- 10:21:00 Snore? Yes 10:21:03 Previous problem with sedation/anesthesia? No ? 10:21:05 Sleep apnea? Yes 10:21:06 Deviated septum? No :21:07 Opens mouth fully? Yes 10:21:08 Sticks out tongue? Yes 10:21:10 Airway obstruction? No ? 10:21:14 Dentures? No ? 10:21:16 - 10:21:37 IV patent on arrival in right forearm with Lactated Ringers at [facility]. 10:22:03 Left Renal was prepped with chlora-prep and draped in sterile fashion. 10:47:07 Vital chart was started 10:47:09 Full Disclosure recording started 10:47:17 Baseline sample Acquired. 10:47:21 - 10:58:17 Heparin Flush Bag (1000units/500ml NS) 2 bags added to field was administered by Charanjit Hightower MD; used for procedure; Verbal order read back and verified. 10:58:29 Lidocaine 1% 20ml vial added to field was administered by Charanjit Hightower MD; for local anesthetic; Verbal order read back and verified. 11:00:20 Benadryl 50 mg I.V. was administered by Farida Anderson RN; Per physician ; Verbal order read back and verified. 11:02:14 - 11:03:14 GLIDE CATHETER 5FR STRAIGHT 65cm (CG505) opened to sterile field. 11::14 KIT, INTRODUCER ACCUSTICK II W/C ([id number]) opened to sterile field. ::14 GLIDE WIRE .035 180CM STRAIGHT ([id number]) opened to sterile field. 11:03:24 - 11:05:53 Physician arrived 11:06:59 --------ALL STOP TIME OUT------ 11:07:00 Final Timeout: patient, procedure, and site verified with staff and physician. All members of the team are in agreement. 11:10:12 Procedure started. 11:10:39 Versed 1 mg I.V. was administered by Farida Anderson RN; for sedation; Verbal order read back and verified. 11:10:53 Fentanyl 50 mcg I.V. was administered by Farida Anderson RN; for sedation ; Verbal order read back and verified. 11:11:26 Local anesthetic to Left Renal area with Lidocaine 1% by Charanjit coronado MD.INITIAL ACCESS ONLY 11:12:06 Versed 1 mg I.V. was administered by Farida Anderson RN; for sedation; Verbal order read back and verified. 11:12:14 Fentanyl 50 mcg I.V. was administered by Farida Anderson RN; for sedation ; Verbal order read back and verified. 11:22:32 NITINOL .018 80cm wire ([id number]) opened to sterile field. 11:24:33 Procedure ended.(Physican Out) 11:24:47 Fluoroscopy time 03.60 minutes. 11:24:57 Dose Area Product 168 mGy/cm. 11:25:27 Contrast amount:Isovue 300 15ml. 11:25:47 Post Left Renal area:stable, clean and dry 11:25:53 Post procedure instruction explained to patient.Patient verbalizes understanding. 11::56 Procedure and supply charges have been captured, reviewed, submitted an d are correct. 11:33:53 Vital chart was stopped 11::56 Full Disclosure recording stopped 11::56 Procedure ended. Device Usage Item Name Manufacture Quantity Catalog Hospital Part Current Minimal Lot# / Number Charge Number Stock Stock Serial# Code Bag Decanter Microtek 1 [id number] 5 () Medical Inc. Sterile Cardinal 1 [id number] 188402 5 Angiographic Health Pack Tegaderm 4 x 3M 1 1626W [id number] 478385 [id number] 5 4 (1626W) GLIDE WIRE Terumo 1 [id number] 446304 5 .035 180CM STRAIGHT ([id number]) KIT, Vendor 1 [id number] 531628 690990 879639 5 [id number] INTRODUCER Scientific ACCUSTICK II W/C ([id number]) GLIDE Terumo 1 CG505 960034 433086 5 CATHETER 5FR STRAIGHT 65cm (CG505) NITINOL .018 Medtronic 1 [id number] 411358 [id number] 5 [id number] 80cm wire ([id number]) Signature Audit [place] Stage Time Signature Unsigned Intra-Procedure 10/23/2019 MICHELLE ROACH RT MICHELLE ROACH RT (R) 11:34:14 AM (R) 10/23/2019 2:03:55 PM Intra-Procedure 10/23/2019 MICHELLE ROACH RT 2:04:19 PM (R) [facility] [address] [place] [address]
[2019-10-23] MEDS ORDERED: XARELTO20 MG PO (09:12)
--- NOTE | 2019-10-23 11:49 | NUR ---
1145 RETURNED TO 2515 PER BED, WITH PT. PT. DROWSY, VITAL SIGNS MONITOR APPLIED. SURGERY NOT READY FOR PT. YET.
--- NOTE | 2019-10-23 12:18 | NUR ---
1215 PT CONTINUES TO NAP SUSPINE. AT SIDE.
--- NOTE | 2019-10-23 13:00 | NUR ---
PT TAKEN TO HOLDING AT THIS TIME, NAD NOTED.
--- NOTE | 2019-10-23 14:52 | NUR ---
POSITIONED ON BACK FRAME ALL AREAS CHECKED PADDED AND SECURED, NO IMPINGEMENTS, GENITALS CHECKED AND FREE, DR VENTURA PRESENT ON PRANAY COELHO.
--- NOTE | 2019-10-23 18:15 | NUR ---
PATIENT WOKE UP, ATE HALF A SANDWICH. TOLERATED WITH NO N/V. IV INTACT. FAMILY AT BEDSIDE. PATIENT GUERRERO INTACT. PINK URINE DRAINING. NEPHRO TUBE INTACT TO GUERRERO BAG. PULIDO COLORED URINE DRAINING. PATIENT HAS NO COMPLAINTS AT THIS TIME. CALL LIGHT WITHIN REACH.
--- NOTE | 2019-10-23 20:00 | NUR ---
PT SITTING UP IN BED WITHOUT DISTRESS, AOX4. AT BEDSIDE. SCDS IN PLACE. TOLERATING FOOD AND DRINK. IV RIGHT FA INFUSING NS @ KVO. GUERRERO IN PLACE WITH PINK DRAINAGE, NEPHRO TUBE IN PLACE WITH BLOODY DRAINAGE. DENIES PAIN AT THIS TIME. DRESSING TO LEFT FLANK CDI. DENIES NEEDS, WILL CTM
[2019-10-24 00:30] VITALS: BP 130/62
[2019-10-24 05:30] VITALS: BP 145/61
--- NOTE | 2019-10-24 07:10 | NUR ---
PT RESTING IN BED. NO SIGNS OF DISTRESS. IV TO RIGHT FORARM PATENT NO REDNESS OR TENDERNESS. HAS GUERRERO NO KINKS PATENT PINK TINGED URINE. HAS NEPHROSTOMY TUBE LFT FLANK AREA PATENT NO KINKS. DENIES ANY PAIN OR OTHER NEED AT THIS TIME. CALL LIGHT IN REACH. BED LOW POSITION. FAMILY AT BEDSIDE AT THIS TIME.
[2019-10-24 09:53] VITALS: BP 126/55
[2019-10-24 13:05] VITALS: BP 105/70
--- NOTE | 2019-10-24 13:11 | OP ---
PATIENT NAME: VERA PARKS MEDICAL RECORD: [id number] :46 LOCATION:[id number] ADMISSION DATE: SURGEON: HEMAL VENTURA MD DATE OF OPERATION: 10/23/2019 SURGEON: Hemal Ventura MD ANESTHESIA: General anesthesia by Brody Colón CRNA. DIAGNOSIS: Left renal stones 18 mm plus 5 mm PROCEDURE: Left percutaneous nephrolithotomy (PCNL). FINDINGS: Radiodense renal stones 18 mm in the renal pelvis and the 5-mm in the mid pole juliet. SPECIMENS: Left renal stones. ESTIMATED BLOOD LOSS: Minimal. CLINICAL HISTORY: This is a 69-year-old male with history of kidney stones. He is found on imaging to have bilateral large kidney stones. The largest in the right kidney is 16 mm. The largest in the left kidney is 18 mm. He had a PCNL on the left side previously to clean out the upper pole and lower pole stone. There is still a mid pole stone, which we could not access at that time. It has not migrated into the renal pelvis. Earlier today, Dr. Hightower obtained a nephroureteral access through a mid pole juliet. This juliet containing the 5-mm stone also. We will try to render him stone free today. 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 DESCRIPTION OF PROCEDURE: The patient was given induction of general anesthesia while in supine position on the stretcher. He was then put in a frog-leg position and prepped and draped. A 21-Montserratian cystoscope with 30-degree lens was used for visualization. The distal end of the nephroureteral stent in the bladder was grasped using grasping forceps and pulled out through the penile meatus. A 16-Montserratian Tavarez catheter was then inserted into the bladder. We then turned the patient into the prone position on the Salvador frame. He was then prepped and draped. An Amplatz Super Stiff wire was placed down the lumen of the nephroureteral catheter. The distal end came out through the penile meatus and the circulating nurse placed a hemostat on it to prevent loss of the access tract. The nephroureteral catheter was then removed entirely. A #11 blade was used to make a small incision on either side of the wire. A dual-lumen catheter was then inserted and placed down into the proximal ureter. Through the second lumen of the dual lumen catheter, we inserted a sensor wire down into the bladder. The sensor wire acts as a safety wire. The dual lumen catheter was then removed, leaving the [address] The safety wire was clamped to the drapes. We worked over the Super Stiff wire. A NephroMax dilator was inserted. The tract was dilated with 20 atmospheres of pressure and the working sheath was placed down over the inflated balloon. Once the sheath was against the renal pelvis stone, then the balloon was deflated and removed entirely. The nephroscope was then introduced. The stone was immediately seen. The Kazakh LithoClast ultrasonic modality was used to fragment the stone into smaller particles. A 4-wire basket was then used to remove the stone particles. The smaller specks were vacuumed up using the ultrasonic modality of the Kazakh LithoClast. The Kazakh LithoClast employ suction also to remove the stone OPERATIVE REPORT [id number] VERA PARKS particles. There was still a radiodensity visible adjacent to the sheath at the periphery of the kidney. I slowly withdrew the sheath while looking under direct vision with the nephroscope. We identified a stone at the location of the radiodensity. This was removed using a 0-tip basket. There are no further radiodensities visible in the kidney. At this point, the procedure was coming to an end. We removed the scope. Over the Super Stiff wire, we inserted a 24-Montserratian Malecot nephrostomy tube. The stylet of the Malecot was removed, allowing the wings to expand. The working sheath, the safety wire and the working wire were entirely removed. The nephrostomy tube was sutured to the skin using 2-0 nylon. Dressings were then applied. We will keep the Tavarez catheter in for the time being. The patient will be admitted for management of the nephrostomy tube and pain control. The stones were sent to pathology for stone analysis. TRANSINT:[id number] Voice Confirmation ID: [id number] DOCUMENT ID: [id number] HEMAL VENTURA MD at 1311 CC: [id number] DICTATION DATE: 10/23/19 1505 [facility]: 10/23/19 2219 [facility] [address] [place] [address]
--- NOTE | 2019-10-24 13:52 | NUR ---
I have reviewed this patient and I concur with the Shift Assessment completed by the Licensed Practical Nurse today this shift.
[2019-10-24 16:33] VITALS: BP 105/65
[2019-10-24 20:00] VITALS: BP 144/46
[2019-10-25] VITALS: BP 143/67
[2019-10-25 04:00] VITALS: BP 149/71
--- NOTE | 2019-10-25 04:10 | NUR ---
PT RESTING IN BED. EYES CLOSED. NO SIGNS OF DISTRESS. BREATHING EVEN AND UNLABORED. IV SITE RT FA DRESSING CLEAN DRY AND INTACT. NO SIGNS OF INFECTION. SKIN CLEAN DRY AND INTACT. LUNG SOUNDS ACTIVE. BOWEL SOUNDS ACTIVE. LT BACK DRESSING CLEAN DRY AND ITNACT. NO LOWER LEG SWELLING PRESENT. WILL CONTINUE PLAN OF CARE. CALL LIGHT IN REACH. BED LOWERED AND LOCKED. BED RAILS UPX2. AT BEDSIDE.
--- NOTE | 2019-10-25 04:27 | NUR ---
I have reviewed this patient and I concur with the Shift Assessment completed by the Licensed Practical Nurse today this shift.
[2019-10-25 07:52] VITALS: BP 165/69
--- NOTE | 2019-10-25 08:05 | NUR ---
ASSESSMENT PER FLOW SHEET. AM MEDS GIVEN,WAITING ON BETAPACE.800CC OF URINE EMPTIED FROM URINAL. 400 CC EMPTIED FROM NEPHROSTOMY BAG.DENIES NEEDS.CALL LIGHT IN REACH
--- NOTE | 2019-10-25 10:55 | NUR ---
IV DCD WITH CATH TIP INTACT.DISCHARGE INSTRUCTIONS,STATES UNDERSTANDING.
--- NOTE | 2019-10-25 11:02 | NUR ---
LEFT UNIT VIA WHEELCHAIR FOR TRANPORT HOME
== END 2019-10-25 11:02 | disposition home or self-care (01) | DRG 661 ==
LOC: D.MS 08:40 → D.SP 08:40 → D.PAN 09:15 → D.OPS 09:15 → D.SP 10:45 → D.PAN 11:00 → D.MS 14:56 → D.SP 15:32 → D.MS 15:32
PROVIDERS: Specialist; ADMIT Urology; ATTEND Urology
PROC: 0TPB8DZ Removal of Intraluminal Device from Bladder, Via Natural or Artificial Opening Endoscopic (ICD-10-PCS; 2019-10-23)
PROC: 0TC13ZZ Extirpation of Matter from Left Kidney, Percutaneous Approach (ICD-10-PCS; principal; 2019-10-23 10:45)
DX: N20.0 Calculus of kidney (principal); I13.10 Hypertensive heart and chronic kidney disease without heart failure, with stage 1 through stage 4 chronic kidney disease, or unspecified chronic kidney disease; N18.9 Chronic kidney disease, unspecified

== ENCOUNTER 2019-12-06 10:00 | Inpatient (IN) | payer MEDICARE, BC ==
[~2019-12-06] VITALS: Ht 180.3 cm; Wt 127.3 kg
--- NOTE | ~2019-12-06 | HEMODYNAMI ---
PATIENT:VERA PARKS MEDICAL RECORD: [id number] : 46 LOCATION:[facility]# [id number] ADMISSION DATE: 12/18/19 Generatedon:12/18/20198:47 Patient name: VERA PARKS Patient #: [id number] SSN: : Date of study: 12/18/2019 Page: Of Hemodynamic Procedure Report Patient Data Patient Demographics Procedure consent was obtained First Name: VERA Gender: Male Last Name: KASEY : 1950 [facility] Initial: CHRIS Age: 69 year(s) Patient #: [id number] Race: Unknown Additional ID: [id number] Contact details Address: [address] [place] [address] State: [place] City: [place] Zip code: [address] Past Medical History Allergies Allergen Reaction Date Comments Reported Penicillins 10/31/2018 Penicillins 01/12/2019 Penicillins 10/15/2019 Other allergy 10/23/2019 PCN Penicillins 12/18/2019 Admission Admission Data Admission Date: 12/18/2019 Admission Time: 5:50 Room #: [facility] Procedure Procedure Types Cath Procedure Peripheral Cath Diagnostic Procedure Nephro Perc Neph Uret Cath Procedure Description Procedure Date Procedure Date: 12/18/2019 Procedure Start Time: 8:24 Procedure End Time: 8:46 Procedure Staff Name Function Charanjit Hightower MD Performing Physician MICHELLE ROACH RT Monitor Mayank Stephens RT Scrub Vilma Riggs RN Nurse Farida Anderson RN Nurse Procedure Data Cath Procedure Fluoroscopy Diagnostic fluoroscopy Total fluoroscopy Time: 4.9 time: 4.9 min min Diagnostic fluoroscopy Total fluoroscopy dose: 240 dose: 240 mGy mGy Contrast Material Contrast Material Type Amount (ml) Isovue 300 20 Procedure Medications Medication Administration Route Dosage Heparin Flush Bag added to field 1 bags (1000units/500ml NS) Lidocaine 1% added to field 20 unlisted medication 1 Versed I.V. 1 mg Fentanyl I.V. 50 mcg Versed I.V. 1 mg Fentanyl I.V. 50 mcg Versed I.V. 1 mg Fentanyl I.V. 50 mcg Benadryl I.V. 50 mg Hemodynamics Rest Heart Rate: 67 (bpm) Snapshots Pre Cath Intra NCS Post Cath Vital Signs Time Heart Resp SPO2 etCO2 NIBP (mmHg) Rhythm Pain Sedation Rate (ipm) (%) (mmHg) Status Level (bpm) 8:13:16 72 17 97 31.8 Measuring NSR 0 (11) , 10(A) No pain 8:13:37 71 16 98 35.5 Disturbed NSR 0 (11) , 10(A) No pain 8:15:13 66 22 98 36.3 149/92(124) NSR 0 (11) , 10(A) No pain 8:19:25 65 16 98 24.2 155/118(131) NSR 0 (11) , 10(A) No pain 8:23:39 62 11 96 25.7 168/89(134) NSR 3 (11) , 9(A) Tolerable 8:28:38 67 18 96 1.5 Measuring NSR 3 (11) , 9(A) Tolerable 8:28:58 66 16 96 1.5 153/91(134) NSR 3 (11) , 9(A) Tolerable 8:33:12 49 11 95 27.2 166/105(138) NSR 3 (11) , 9(A) Tolerable 8:37:30 63 11 92 48.4 163/99(131) NSR 0 (11) , 10(A) No pain 8:41:44 68 20 94 46.1 154/98(133) NSR 0 (11) , 10(A) No pain 8:47:04 29.5 135/72(105) NSR 0 (11) , 10(A) No pain Medications Time Medication Route Dose Verified Delivered Reason Notes Effec tiveness by by 8:20:40 Heparin Flush added 1 Charanjit Donohue used for Bag to bags Hightower Hightower procedure (1000units/500ml field MD BEDOLLA NS) 8:20:54 Lidocaine 1% added 20ml Charanjit Donohue for local to vial Hightower Hightower anesthetic field MD BEDOLLA 8:21:24 cefepime ivpb 1 gm Charanjit Esparza Per Campbell Riggs RN physician 8:21:42 Versed I.V. 1 mg Charanjit Esparza for Hightower Riggs RN sedation 8:21:59 Fentanyl I.V. 50 Charanjit Vilma for mcg Hightower Riggs RN sedation 8:24:33 Versed I.V. 1 mg Charanjit Vilma for Hightower Riggs RN sedation 8:24:40 Fentanyl I.V. 50 Charanjit Vilma for mcg Hightower Riggs RN sedation 8:34:52 Versed I.V. 1 mg Charanjit Vilma for Hightower Riggs RN sedation 8:35:10 Fentanyl I.V. 50 Charanjit Vilma for mcg Hightower Riggs RN sedation 8:36:43 Benadryl I.V. 50 mg Charanjit Negretei Campbell Villalpandoer RN Procedure Log Time Note 7:16:56 Use device set IR Diagnostic 7:16:58 Bag Decanter (2002S) opened to sterile field. 7:16:58 Sterile Angiographic Pack opened to sterile field. 7:16:59 Tegaderm 4 x 4 (1626W) opened to sterile field. 7:17:22 KIT, INTRODUCER ACCUSTICK II W/C ([id number]) opened to sterile field. 7:19:27 7:47:23 Mayank Stephens RT (R) (CV) sent for patient. Start room use. 7:47:25 Time tracking: Regular hours (M-F 7:00 - 5:00) 7:47:36 Plan of Care:Hemodynamics will remain stable., Cardiac rhythm will remain stable., Comfort level will be maintained., Respiratory function will remain adequate., Patient/ family verbilizes understanding of procedure., Procedure tolerated without complication., Recovers from procedure without complications.. 7:47:42 Patient received from Outpatients to IR Alert and oriented. Tansferred to table in Prone position. 7:47:44 Signed procedure consent form obtained from patient. 7:47:46 Warm blankets applied, and cyn hugger turned on for patient comfort. 7:47:46 Correct patient and procedure confirmed by team. 7:47:49 ECG and BP/O2 sat monitors applied to patient. 7:47:53 7:47:57 H&P Date Dictated: 12/18/2019 H&P Addendum completed by physician on day of procedure. (MUST COMPLETE FOR ALL OUTPATIENTS). 7:47:59 Pre-procedure instructions explained to patient. 7:47:59 Pre-op teaching completed and patient verbalized understanding. 7:49:21 Patient NPO since Midnight. 7:49:28 Patient allergic to Penicillins 7:49:35 Is the patient allergic to Iodine/contrast media? No. 7:49:37 Is patient on blood thinner?Yes. last dose 12/12/2019 7:50:11 Patient diabetic? No. 7:50:13 7:50:15 ----Pre-sedation anethsthesia assessment.---- 7:50:18 Previous problem with sedation/anesthesia? No ? 7:50:20 Snore? Yes 7:50:21 Sleep apnea? Yes 7:50:22 Deviated septum? No 7:50:24 Opens mouth fully? Yes 7:50:25 Sticks out tongue? Yes 7:50:27 Airway obstruction? No ? 7:50:32 7:50:47 Right Renal was prepped with chlora-prep and aped in sterile fashion. 7:50:49 8:11:27 Vital chart was started 8:14:26 Baseline sample Acquired. 8:16:52 GLIDE CATHETER 5FR ANGLED 65cm (CG507) opened to sterile field. 8:17:51 Physician arrived 8:17:51 --------ALL STOP TIME OUT------ 8:20:00 Full Disclosure recording started 8:20:00 Procedure started. 8:20:40 Heparin Flush Bag (1000units/500ml NS) 1 bags added to field was administered by Charanjit Hightower MD; used for procedure; Verbal order read back and verified. 8:20:54 Lidocaine 1% 20ml vial added to field was administered by Charanjit Hightower MD; for local anesthetic; Verbal order read back and verified. 8:21:24 cefepime 1 gm ivpb was administered by Vilma Riggs RN; Per physician; Verbal order read back and verified. 8:21:42 Versed 1 mg I.V. was administered by Vilma Riggs RN; for sedation; Verbal order read back and verified. 8:21:59 Fentanyl 50 mcg I.V. was administered by Vilma Riggs RN; for sedation; Verbal order read back and verified. 8:24:33 Versed 1 mg I.V. was administered by Vilma Riggs RN; for sedation; Verbal order read back and verified. 8:24:40 Fentanyl 50 mcg I.V. was administered by Vilma Riggs RN; for sedation; Verbal order read back and verified. 8:24:51 Local anesthetic to Right Renal area with Lidocaine 1% by Charanjit Hightower MD.INITIAL ACCESS ONLY 8:34:52 Versed 1 mg I.V. was administered by Vilma Riggs RN; for sedation; Verbal order read back and verified. 8:35:10 Fentanyl 50 mcg I.V. was administered by Vilma Riggs RN; for sedation; Verbal order read back and verified. 8:36:43 Benadryl 50 mg I.V. was administered by Vilma Riggs RN; ; Verbal order read back and verified. 8:37:34 NITINOL .018 80cm wire ([id number]) opened to sterile field. 8:40:04 Procedure ended.(Physican Out) 8:40:24 Fluoroscopy time 04.90 minutes. 8:40:28 Fluoroscopy dose: 240 mGy 8:40:28 Flurop Dose total: 240 8:41:19 Contrast amount:Isovue 300 20ml. 8:41:39 Post-op/insertion site Right Renal access catheter left in site dressed using a 4 x 4 and Tegaderm. 8:42:09 Post procedure instruction explained to patient.Patient verbalizes understanding. 8:42:10 Procedure and supply charges have been captured, reviewed, submitted and are correct. 8:46:42 Vital chart was stopped 8:46:43 See physician's report for complete and final results. 8:46:47 Patient transfered to Outpatients with Stretcher. 8:46:58 Procedure ended. 8:46:58 Full Disclosure recording stopped 8:47:02 End room use (Document Last) Device Usage Item Name Manufacture Quantity Catalog Hospital Part Current Minimal Lot# / Number Charge Number Stock Stock Serial# Code Bag Decanter Microtek 1 [id number] 5 () Medical Inc. Sterile Cardinal 1 [id number] [id number] [id number] 5 Angiographic Health Pack Tegaderm 4 x 3M 1 1626W 243417 201864 [id number] 5 4 (1626W) KIT, [place] 1 [id number] 846036 [id number] 5 INTRODUCER Scientific ACCUSTICK II W/C ([id number]) GLIDE Terumo 1 CG507 992272 041972 5 CATHETER 5FR ANGLED 65cm (CG507) NITINOL .018 Medtronic 1 [id number] [id number] 5 [id number] 80cm wire ([id number]) Signature Audit [place] Stage Time Signature Unsigned Intra-Procedure 12/18/2019 MICHELLE ROACH RT 8:47:23 AM (R) [facility] [address] [place] [address]
[~2019-12-06 10:00] MED LIST changes: +HYDRALAZINE HC100 MG PO; -HYDRALAZINE HCL50 MG PO
[2019-12-17] MEDS ORDERED: BETAPACE 120 M120 MG PO ×2 (09:00→09:01)
[2019-12-17] MEDS ORDERED: FUROSEMIDE20 MG PO (09:03)
[2019-12-17] MEDS ORDERED: METHOCARBAMOL750 MG NG (09:05)
[2019-12-17 09:51] LABS: BASOPHILS 0.2 % (0-2); EOSINOPHILS 3.1 % (0-7); HEMATOCRIT 41.8 % (42.0-54.0); HEMOGLOBIN 13.1 g/dL (13.5-17.5); IMMATURE GRANULOCYTES 0.2 % (0-5); LYMPHOCYTES 12.8 % (15-50); MCH 27.2 pg (26.0-34.0); MCHC 31.3 g/dL (31.0-37.0); MCV 86.7 fL (80.0-100.0); MEAN PLATELET VOLUME 10.2 fL (7.4-10.4); MONOCYTES 9.3 % (2-11); NEUTROPHILS 74.4 % (40-80); PLATELET COUNT 267 10x3/uL (130-400); RBC 4.82 10x6/uL (4.20-6.10); RDW 17.2 % (11.5-14.5); WBC 8.7 10x3/uL (4.8-10.8)
[2019-12-17 10:08] LABS: ANION GAP 9.4 mmol/L (8-16); CALCIUM 9.1 mg/dL (8.5-10.1); CARBON DIOXIDE 30.2 mmol/L (21.0-32.0); CREATININE - SERUM 1.6 mg/dL (0.6-1.3); POTASSIUM - SERUM 3.6 mmol/L (3.5-5.1)
[2019-12-17 10:45] LABS: APTT 29.2 SECONDS (22.8-39.4); INR 1.01 (0.85-1.17); PROTIME 13.3 SECONDS (11.6-15.0)
[2019-12-18 06:28] VITALS: BP 143/74; BMI 38.5
--- NOTE | 2019-12-18 06:39 | NUR ---
PREOP MEDS NOT GIVEN YET. IN CHART. WILL GIVE AFTER PT RETURNS FROM IR PROCEDURE WITH DR. WILDE.
[2019-12-18 16:51] VITALS: BP 163/70; Ht 180.3 cm; Wt 127.3 kg
--- NOTE | 2019-12-18 19:10 | NUR ---
PATIENT SITTING UP IN BED, AT BEDSIDE. ALERT AND ORIENTED. NO SIGNS OF ACUTE DISTRESS AT THIS TIME. PATIENT STATES THAT HIS PAIN IS GETTING BETTER AND IS A 6/10. PATIENT HAS NO NEEDS AT THIS TIME. BED IN LOW POSITION, RAILS X2. BEDSIDE TABLE AND CALL LIGHT WITHIN REACH.
[2019-12-18 21:28] VITALS: BP 127/67
--- NOTE | 2019-12-18 22:53 | OP ---
PATIENT NAME: VERA PARKS MEDICAL RECORD: [id number] :46 LOCATION:[id number] ADMISSION DATE:12/18/19 SURGEON: HEMAL VENTURA MD DATE OF OPERATION: 12/18/2019 SURGEON: Hemal Ventura MD ANESTHESIA: General anesthesia. Brittany Baron CRNA. PREOPERATIVE DIAGNOSIS: Right renal stones, multiple. The large stone is 16 mm in size. POSTOPERATIVE DIAGNOSIS: Right renal stones, multiple. The large stone is 16 mm in size. PROCEDURES: Cystoscopy, right percutaneous nephrolithotomy (PCNL). FINDINGS: Radiodense renal stones. ESTIMATED BLOOD LOSS: Minimal. SPECIMENS: Renal stones from the right kidney. CLINICAL HISTORY: This is a 69-year-old male, who has bilateral kidney stones. I performed PCNL on the left kidney to get rid of large stones on that side. The stone analysis turned out to be 70%, calcium oxalate, 20% calcium phosphate, and 10% uric acid. He still has large stones in the right kidney, 16 mm in size. He comes today to have the right-sided kidney stones cleaned out as much as possible. Since the stones are in adjacent calices, I explained to him that I may not be able to get all of the stones out as I am using a rigid scope that can flex backwards to check the adjacent calices. Earlier today, he went and had the renal access performed. Interventional radiology placed a nephroureteral access catheter, which goes down the ureter and into the bladder. He IS ALLERGIC TO PENICILLIN. He was given Levaquin IV nutritionist public health to the OR. DESCRIPTION OF PROCEDURE: The patient was given induction of general anesthesia in supine position on the stretcher. He was then put into frogleg position. The rigid cystoscope was used. The distal end of the nephroureteral catheter was identified. Grasping forceps were used to bring it out through the penile urethra. A Tavarez catheter was then placed into the bladder and put to bag drainage. The patient was then turned over on to the Salvador frame. He was prepped and draped. The nephroureteral catheter was accessed by placing an Amplatz Super Stiff wire down the lumen. Once it exited out of the urethra in the penile region, the circulating nurse placed a hemostat on the Amplatz Super Stiff wire to prevent loss of the access. The nephroureteral sheath was then removed and discarded. A 1-cm incision was made on either side of the Super Stiff wire. A dual-lumen catheter was then inserted over the Super Stiff wire and into the proximal ureter. Through the second lumen, a Sensor wire was placed down into the bladder. Once the [address], the dual lumen catheter was removed, leaving the [address] The Sensor wire was clamped to the drapes to act as a safety wire. We worked over the Super Stiff wire. The tract was dilated using a NephroMax tract dilation balloon. We dilated the tract to 16 atmospheres of pressure. The 30-Norwegian working sheath was inserted over the balloon and into the kidney. The balloon was then deflated and removed entirely. The nephroscope was introduced. I immediately encountered the OPERATIVE REPORT [id number] VERA PARKS largest stone. A 3-Norwegian 0-tip 4-wire basket was placed around the stone and the stone was completely removed. Similarly, a stone in the upper pole juliet was found and removed and large stones in the lower pole calices were also found and removed. There is 1 remaining 10-mm stone in an adjacent juliet, which I could not access. We will have to treat the stone with lithotripsy. There are some slightly smaller 3-4 mm stones, which are also present in the adjacent calices, but this will also have to be treated with lithotripsy. I could not find any further stones in the calices that I could access with the scope. The scope was then removed. Over the Super Stiff wire, we inserted the 24-Norwegian Malecot nephrostomy tube. Once the nephrostomy tube was in correct position, under fluoroscopy, the wires were removed entirely. The working sheath was removed entirely. The tube was sutured to the skin using 2-0 nylon. Dressings were then applied. The patient was then awakened and brought back to the recovery room. TRANSINT:[id number] Voice Confirmation ID: [id number] DOCUMENT ID: [id number] HEMAL VENTURA MD at 2253 CC: [id number] DICTATION DATE: 12/18/19 1535 STRAPPING MACHINE OPERATOR: 12/18/19 [address] [place] [address]
[2019-12-19 01:59] VITALS: BP 120/61
[2019-12-19 06:04] VITALS: BP 138/52
--- NOTE | 2019-12-19 07:14 | NUR ---
BED ALARM WAIVER SIGNED PER REQUEST.
--- NOTE | 2019-12-19 07:32 | NUR ---
ALERT AND ORIENTED. LUNGS CLEAR BILATERALLY. HEART SOUNDS S1 AND S2 HEARD IN ALL STEVE. BOWEL SOUNDS ACTIVE X 4. NEPHROSTOMY DRAIN TO RIGHT BACK PATENT. GUERRERO PATENT. IV TO RFA PATENT WITHOUT REDNESS. DENIES NEEDS. BED LOW. CALL DURAN AND PERSONAL ITEMS IN REACH. WILL CONTINUE TO MONITOR.
[2019-12-19 08:00] VITALS: BP 151/76
--- NOTE | 2019-12-19 08:08 | NUR ---
PATIENT REQUESTING IV OUT TO RIGHT AC D/T CAUSING PAIN. ALSO STATES MORPHINE NOT WORKING AND WANTS PRN NORCO INSTEAD. NORCO ALREADY ON EMAR. SPOKE WITH DR VENTURA WHO STATES OK TO TAKE IV OUT AND LEAVE OUT AND CHANGE ZOFRAN TO 4MG PO Q6HR PRN. IV REMOVED FROM RIGHT AC WITH TIP INTACT.
[2019-12-19 12:00] VITALS: BP 140/70
--- NOTE | 2019-12-19 13:19 | NUR ---
GUERRERO REMOVED PER ORDER.
--- NOTE | 2019-12-19 14:13 | NUR ---
RESTING IN BED. DENIES NEEDS. WILL CONTINUE TO MONITOR.
[2019-12-19 17:09] VITALS: BP 145/52
[2019-12-19 21:09] VITALS: BP 157/65
--- NOTE | 2019-12-20 01:11 | NUR ---
PT RESTING IN BED. EYES CLOSED. NO SIGNS OF DISTRESS. BREATHING EVEN AND UNLABORED. NO IV SITE AT THIS TIME. SKIN CLEAN DRY AND INTACT. LUNG SOUNDS CLEAR. BOWEL SOUNDS ACTIVE. DRESSING RT BACK CLEAN DRY AND INTACT. WILL CONTINUE PLAN OF CARE. CALL LIGHT IN REACH. BED LOWERED AND LOCKED. BED RAILS UPX2. AT BEDSIDE.
--- NOTE | 2019-12-20 01:13 | NUR ---
I have reviewed this patient and I concur with the Shift Assessment completed by the Licensed Practical Nurse today this shift.
[2019-12-20 01:29] VITALS: BP 125/54
[2019-12-20 05:53] VITALS: BP 119/53
[2019-12-20 08:30] VITALS: BP 108/42
[2019-12-20 12:02] VITALS: BP 122/55
[2019-12-20 13:52] VITALS: BP 132/60
[2019-12-20] MEDS ORDERED: NORCO-7.51 TAB PO (16:29)
[2019-12-20 16:45] VITALS: BP 117/72
== END 2019-12-20 18:33 | disposition home or self-care (01) | DRG 661 ==
LOC: D.OPS 10:00 → D.SDCHOLD 12-18 05:50 → D.MS 12-18 05:50 → D.PAN 12-18 08:00 → EDSTATUS 12-18 08:00 → D.OPS 12-18 08:00 → D.PAN 12-18 10:00 → D.MS 12-18 15:51
PROVIDERS: Specialist; ADMIT Urology; ATTEND Urology
PROC: 0T133JD Bypass Right Kidney Pelvis to Cutaneous with Synthetic Substitute, Percutaneous Approach (ICD-10-PCS; 2019-12-18)
PROC: 0TC Urinary System, Extirpation (ICD-10-PCS; principal; 2019-12-18 07:30)
DX: N20.0 Calculus of kidney (principal); I25.10 Atherosclerotic heart disease of native coronary artery without angina pectoris; E78.5 Hyperlipidemia, unspecified; I10 Essential (primary) hypertension; E66.9 Obesity, unspecified; Z68.38 Body mass index [BMI] 38.0-38.9, adult

== ENCOUNTER → 2020-02-05 11:11 | Outpatient (CLI) | payer MEDICARE, BC ==
[2019-12-18 16:51] VITALS: BMI 39.1
[~2020-02-05 11:11] MED LIST changes: +METHOCARBAMOL750 MG NG; +NORCO-7.51 TAB PO
== END | disposition home or self-care (01) ==
LOC: D.CT 11:11
PROVIDERS: ATTEND Radiology Diagnostic Radiology
DX: N28.89 Other specified disorders of kidney and ureter (principal)

== ENCOUNTER → 2021-03-23 09:28 | Outpatient (CLI) | payer MEDICARE, BC ==
[2020-11-05 12:11] VITALS: BMI 38.5
[2021-03-23 10:11] LABS: BASOPHILS 0.3 % (0-2); EOSINOPHILS 1.4 % (0-7); HEMATOCRIT 48.7 % (42.0-54.0); HEMOGLOBIN 15.7 g/dL (13.5-17.5); LYMPHOCYTES 8.4 % (15-50); MCHC 32.2 g/dL (31.0-37.0); MCV 86.8 fL (80.0-100.0); MEAN PLATELET VOLUME 8.5 fL (7.4-10.4); MONOCYTES 7.3 % (2-11); NEUTROPHILS 82.6 % (40-80); RBC 5.61 10x6/uL (4.20-6.10); RDW 16.1 % (11.5-14.5); WBC 10.5 10x3/uL (4.8-10.8)
[2021-03-23 10:19] LABS: ANION GAP 7.4 mmol/L (8-16); CALCIUM 8.9 mg/dL (8.5-10.1); CARBON DIOXIDE 32.2 mmol/L (21.0-32.0); CREATININE - SERUM 1.2 mg/dL (0.6-1.3); POTASSIUM - SERUM 3.6 mmol/L (3.5-5.1)
[2021-03-23 10:27] LABS: INR 1.58 (0.85-1.17); PROTIME 17.5 SECONDS (11.6-15.0)
[2021-03-23 10:33] LABS: PLATELET COUNT 302 10x3/uL (130-400)
== END | disposition home or self-care (01) ==
LOC: D.CT 02-10 10:30
PROVIDERS: ATTEND Radiology Diagnostic Radiology
DX: N28.89 Other specified disorders of kidney and ureter (principal)